=== PATIENT | male | born 1965 | race Caucasian/White ===

== ENCOUNTER 2017-09-17 10:04 | Inpatient (IN) | payer OTHER ==
[~2017-09-17] VITALS: Ht 182.9 cm; Wt 91.3 kg
[~2017-09-17 10:04] MED LIST: ACET325 PO; ACET500 PO; ALBU90I INH; ALBU90OI INH; ALBU90OI6 INH; ALBU90OI61 INH; ANXIETY; ANXIETY MEDS; ASCO250CH PO; Antivert12.5 MG PO; Antivert25 MG PO; BECL80OI INH; BP MEDS; CEPH500 PO; CHLO25 PO; CHLO5; CLON.1; CLON.1 PO; CRUTCH3 XX; Constulose10 GM/15 M PO; Coumadin1 MG PO; DEPRESSION; DEPRESSION MED; DICL250 PO; DOXY100 PO; Enulose 2020 G/30 ML PO; Enulose10 GM/15 M; FAMO40 PO; FERR325 PO; FLUC150A PO; FLUO10; FLUO10 PO; FOLI1 PO; HYDACE5 PO; HYDPAM25 PO; IBUP600 PO; IBUP800 PO; Keflex500 MG PO; LACT10SY PO; LISI20 PO; LISI5 PO; Lisinopril2.5 MG; MECL25 PO; META800 PO; METO50ER PO; MULTI VITAMIN1 EACH PO; MULVITMIND PO; Motrin100 MG/5 M PO; NADO20; NADO20 PO; NAPR500 PO; NICO21TP; NICO21TP TD; NYST100P TOP; Naprosyn500 MG PO; Norco 5-325 Ta1 EACH PO; OMEP20ER PO; OMEP40CA12 PO; OXYACE5T PO; OXYC5 PO; Omeprazole20 M1 PO; PANT40 PO; PROM25 PO; Prozac20 MG PO; RANI150 PO; RXERYTOPTH OP; RXSULTRIDS PO; SULTRIDS PO; THIA100 PO; TRAM50; TRAM50 PO; Ultram50 MG PO; VITAMIN B-1100 MG PO; Zofran Odt4 MG SL; [UNRECOGNIZED DRUG - REMARK]
[2017-09-17] MEDS ORDERED: CLON.1 PO (10:15)
[2017-09-17] MEDS ORDERED: Lactulose10 GM/151 PO (10:15)
[2017-09-17] MEDS ORDERED: MOTION RELIEF25 MG PO (10:16)
[2017-09-17] MEDS ORDERED: Omeprazole20 M1 PO (10:16)
[2017-09-17] MEDS ORDERED: Prozac20 MG PO (10:16)
[2017-09-17] MEDS ORDERED: NADO20 PO (10:17)
[2017-09-17] MEDS ORDERED: Aspir-Low81 MG PO (10:17)
[2017-09-17 10:25] LABS: BASOPHILS ABSOLUTE AUTO 0.12 K/mm3 (0.00-0.23); BASOPHILS PERCENT AUTO 1 % (0-2); EOSINOPHILS ABSOLUTE AUTO 0.26 K/mm3 (0.00-0.68); EOSINOPHILS PERCENT AUTO 3 % (0-6); Hemoglobin 15.8 g/dL (13.5-17.5); IMMATURE GRAN ABSOLUTE AUTO 0.16 K/mm3 (0.00-0.10); IMMATURE GRAN PERCENT AUTO 2 % (0-1); LYMPHOCYTES ABSOLUTE AUTO 2.86 K/mm3 (0.84-5.20); LYMPHOCYTES PERCENT AUTO 30 % (21-46); MONOCYTES ABSOLUTE AUTO 1.81 K/mm3 (0.16-1.47); MONOCYTES PERCENT AUTO 19 % (4-13); Mean Corpuscular HGB 32.4 pg (26.0-34.0); Mean Corpuscular HGB Conc 35.1 g/dL (31.5-36.5); Mean Corpuscular Volume 92 fL (80-100); NEUTROPHILS ABSOLUTE AUTO 4.45 K/mm3 (1.96-9.15); NEUTROPHILS PERCENT AUTO 46 % (41-73); Platelet Count 110 K/mm3 (150-400); RDW Standard Deviation 52.9 fL (35.1-46.3); Red Blood Cell Count 4.88 M/mm3 (4.30-5.90); White Blood Cell Count 9.66 K/mm3 (4.00-11.30)
[2017-09-17 10:40] LABS: International Normalized Ratio 1.23; Prothrombin Time Results 12.9 Sec (9.7-11.5)
[2017-09-17 10:47] LABS: Alanine Aminotransfer (ALT/SGP 28 U/L (12-78); Albumin, Blood 2.9 g/dL (3.4-5.0); Albumin/Globulin Ratio 0.8 (0.8-1.8); Alk Phos 129 U/L (50-136); Anion Gap 9 mmol/L (6-16); Aspartate Aminotrans (AST/SGOT 33 U/L (12-37); Bilirubin, Total 2.3 mg/dL (0.1-1.0); Blood Urea Nitrogen 14 mg/dL (8-24); Bun/Creatinine Ratio 16.6 (12.0-20.0); CO2, Blood 22 mmol/L (21-32); Calcium, Blood 8.2 mg/dL (8.5-10.1); Chloride, Blood 112 mmol/L (98-108); Creatinine, Blood 0.84 mg/dL (0.60-1.20); Globulin, Blood 3.8 g/dL (2.2-4.0); Glomerular Filtration Rate >60 (60-); Glucose, Blood 84 mg/dL (70-99); Potassium, Blood 3.1 mmol/L (3.5-5.5); Sodium, Blood 143 mmol/L (136-145); Total Protein, Blood 6.7 g/dL (6.4-8.2); Troponin I <0.015 ng/mL (0.000-0.040)
[2017-09-18 05:22] LABS: BASOPHILS ABSOLUTE AUTO 0.11 K/mm3 (0.00-0.23); BASOPHILS PERCENT AUTO 1 % (0-2); EOSINOPHILS ABSOLUTE AUTO 0.16 K/mm3 (0.00-0.68); EOSINOPHILS PERCENT AUTO 2 % (0-6); Hematocrit 43.2 % (37.0-53.0); Hemoglobin 15.3 g/dL (13.5-17.5); IMMATURE GRAN ABSOLUTE AUTO 0.09 K/mm3 (0.00-0.10); IMMATURE GRAN PERCENT AUTO 1 % (0-1); LYMPHOCYTES PERCENT AUTO 28 % (21-46); MONOCYTES ABSOLUTE AUTO 1.71 K/mm3 (0.16-1.47); MONOCYTES PERCENT AUTO 20 % (4-13); Mean Corpuscular HGB 31.9 pg (26.0-34.0); Mean Corpuscular HGB Conc 35.4 g/dL (31.5-36.5); Mean Corpuscular Volume 90 fL (80-100); Mean Platelet Volume 11.9 fL (9.1-12.4); NEUTROPHILS PERCENT AUTO 48 % (41-73); Platelet Count 111 K/mm3 (150-400); RDW Coefficient Variation 15.7 % (11.7-14.2); RDW Standard Deviation 51.3 fL (35.1-46.3); Red Blood Cell Count 4.79 M/mm3 (4.30-5.90); White Blood Cell Count 8.37 K/mm3 (4.00-11.30)
[2017-09-18 05:31] LABS: International Normalized Ratio 1.32; Prothrombin Time Results 13.9 Sec (9.7-11.5)
[2017-09-18 05:40] LABS: Alanine Aminotransfer (ALT/SGP 26 U/L (12-78); Albumin, Blood 2.5 g/dL (3.4-5.0); Albumin/Globulin Ratio 0.7 (0.8-1.8); Alk Phos 103 U/L (50-136); Anion Gap 10 mmol/L (6-16); Aspartate Aminotrans (AST/SGOT 31 U/L (12-37); Bilirubin, Direct 0.6 mg/dL (0.0-0.3); Bilirubin, Total 2.6 mg/dL (0.1-1.0); Blood Urea Nitrogen 9 mg/dL (8-24); Bun/Creatinine Ratio 12.3 (12.0-20.0); CO2, Blood 19 mmol/L (21-32); Calcium, Blood 7.9 mg/dL (8.5-10.1); Chloride, Blood 115 mmol/L (98-108); Creatinine, Blood 0.73 mg/dL (0.60-1.20); Globulin, Blood 3.7 g/dL (2.2-4.0); Glomerular Filtration Rate >60 (60-); Glucose, Blood 80 mg/dL (70-99); Potassium, Blood 3.9 mmol/L (3.5-5.5); Sodium, Blood 144 mmol/L (136-145); Total Protein, Blood 6.2 g/dL (6.4-8.2)
[2017-09-19 05:04] LABS: BASOPHILS ABSOLUTE AUTO 0.11 K/mm3 (0.00-0.23); BASOPHILS PERCENT AUTO 1 % (0-2); EOSINOPHILS ABSOLUTE AUTO 0.15 K/mm3 (0.00-0.68); EOSINOPHILS PERCENT AUTO 2 % (0-6); Hematocrit 43.4 % (37.0-53.0); Hemoglobin 15.3 g/dL (13.5-17.5); IMMATURE GRAN ABSOLUTE AUTO 0.09 K/mm3 (0.00-0.10); IMMATURE GRAN PERCENT AUTO 1 % (0-1); LYMPHOCYTES ABSOLUTE AUTO 2.65 K/mm3 (0.84-5.20); LYMPHOCYTES PERCENT AUTO 31 % (21-46); MONOCYTES ABSOLUTE AUTO 1.63 K/mm3 (0.16-1.47); MONOCYTES PERCENT AUTO 19 % (4-13); Mean Corpuscular HGB 32.5 pg (26.0-34.0); Mean Corpuscular HGB Conc 35.3 g/dL (31.5-36.5); Mean Corpuscular Volume 92 fL (80-100); Mean Platelet Volume 11.5 fL (9.1-12.4); NEUTROPHILS ABSOLUTE AUTO 4.02 K/mm3 (1.96-9.15); NEUTROPHILS PERCENT AUTO 47 % (41-73); Platelet Count 109 K/mm3 (150-400); RDW Coefficient Variation 15.4 % (11.7-14.2); Red Blood Cell Count 4.71 M/mm3 (4.30-5.90); White Blood Cell Count 8.65 K/mm3 (4.00-11.30)
[2017-09-19 05:20] LABS: Anion Gap 9 mmol/L (6-16); Blood Urea Nitrogen 8 mg/dL (8-24); Bun/Creatinine Ratio 12.2 (12.0-20.0); CO2, Blood 21 mmol/L (21-32); Calcium, Blood 7.7 mg/dL (8.5-10.1); Chloride, Blood 111 mmol/L (98-108); Creatinine, Blood 0.66 mg/dL (0.60-1.20); Glomerular Filtration Rate >60 (60-); Glucose, Blood 85 mg/dL (70-99); Potassium, Blood 3.7 mmol/L (3.5-5.5); Sodium, Blood 141 mmol/L (136-145)
[2017-09-20 05:00] LABS: BASOPHILS ABSOLUTE AUTO 0.16 K/mm3 (0.00-0.23); BASOPHILS PERCENT AUTO 2 % (0-2); EOSINOPHILS ABSOLUTE AUTO 0.18 K/mm3 (0.00-0.68); EOSINOPHILS PERCENT AUTO 2 % (0-6); Hematocrit 41.6 % (37.0-53.0); Hemoglobin 14.6 g/dL (13.5-17.5); IMMATURE GRAN ABSOLUTE AUTO 0.15 K/mm3 (0.00-0.10); IMMATURE GRAN PERCENT AUTO 2 % (0-1); LYMPHOCYTES ABSOLUTE AUTO 2.78 K/mm3 (0.84-5.20); LYMPHOCYTES PERCENT AUTO 27 % (21-46); MONOCYTES ABSOLUTE AUTO 2.24 K/mm3 (0.16-1.47); MONOCYTES PERCENT AUTO 22 % (4-13); Mean Corpuscular HGB 32.7 pg (26.0-34.0); Mean Corpuscular HGB Conc 35.1 g/dL (31.5-36.5); Mean Corpuscular Volume 93 fL (80-100); Mean Platelet Volume 11.8 fL (9.1-12.4); NEUTROPHILS ABSOLUTE AUTO 4.82 K/mm3 (1.96-9.15); NEUTROPHILS PERCENT AUTO 47 % (41-73); Platelet Count 116 K/mm3 (150-400); RDW Coefficient Variation 15.7 % (11.7-14.2); RDW Standard Deviation 53.6 fL (35.1-46.3); Red Blood Cell Count 4.47 M/mm3 (4.30-5.90); White Blood Cell Count 10.33 K/mm3 (4.00-11.30)
[2017-09-20 05:18] LABS: Anion Gap 8 mmol/L (6-16); Blood Urea Nitrogen 12 mg/dL (8-24); Bun/Creatinine Ratio 14.9 (12.0-20.0); CO2, Blood 23 mmol/L (21-32); Calcium, Blood 8.1 mg/dL (8.5-10.1); Chloride, Blood 111 mmol/L (98-108); Creatinine, Blood 0.81 mg/dL (0.60-1.20); Glomerular Filtration Rate >60 (60-); Glucose, Blood 85 mg/dL (70-99); Potassium, Blood 4.2 mmol/L (3.5-5.5); Sodium, Blood 142 mmol/L (136-145)
== END 2017-09-20 14:09 | disposition home health service (06) | DRG 443 ==
LOC: ER 10:04 → MEDS 11:30 → ENPENDDIS 09-20 10:00 → MEDS 09-20 14:09
PROVIDERS: Emergency Medicine; Hospitalist
DX: K72.90 Hepatic failure, unspecified without coma (principal); K70.30 Alcoholic cirrhosis of liver without ascites; K21.9 Gastro-esophageal reflux disease without esophagitis; I10 Essential (primary) hypertension; G89.29 Other chronic pain; M54.9 Dorsalgia, unspecified; F10.11 Alcohol abuse, in remission; I48.2 Chronic atrial fibrillation; F41.9 Anxiety disorder, unspecified; F32.9 Major depressive disorder, single episode, unspecified; R53.1 Weakness; F17.200 Nicotine dependence, unspecified, uncomplicated; Z79.82 Long term (current) use of aspirin; Z88.0 Allergy status to penicillin; Z91.14 Patient's other noncompliance with medication regimen; Z79.899 Other long term (current) drug therapy; Z96.89 Presence of other specified functional implants
CPT/HCPCS: 36415; 71046; 80048; 80053; 80076; 82140; 83735; 83880; 84484; 85025; 85610; 93005; 93010; 96360; 97110; 97116; 97162; 99285; G0480; G8978; G8979; J0360; J7030

== ENCOUNTER 2017-12-25 11:48 | Observation (INO) | payer OTHER ==
[~2017-12-25] VITALS: Ht 182.9 cm; Wt 90.7 kg
[~2017-12-25 11:48] MED LIST changes: +Aspir-Low81 MG PO; +Lactulose10 GM/151 PO; +MOTION RELIEF25 MG PO
[2017-12-25 12:29] LABS: BASOPHILS ABSOLUTE AUTO 0.17 K/mm3 (0.00-0.23); BASOPHILS PERCENT AUTO 2 % (0-2); EOSINOPHILS ABSOLUTE AUTO 0.21 K/mm3 (0.00-0.68); EOSINOPHILS PERCENT AUTO 3 % (0-6); Hematocrit 42.6 % (37.0-53.0); Hemoglobin 15.4 g/dL (13.5-17.5); IMMATURE GRAN ABSOLUTE AUTO 0.06 K/mm3 (0.00-0.10); IMMATURE GRAN PERCENT AUTO 1 % (0-1); LYMPHOCYTES ABSOLUTE AUTO 2.48 K/mm3 (0.84-5.20); LYMPHOCYTES PERCENT AUTO 30 % (21-46); MONOCYTES ABSOLUTE AUTO 1.63 K/mm3 (0.16-1.47); MONOCYTES PERCENT AUTO 20 % (4-13); Mean Corpuscular HGB 32.6 pg (26.0-34.0); Mean Corpuscular HGB Conc 36.2 g/dL (31.5-36.5); Mean Corpuscular Volume 90 fL (80-100); NEUTROPHILS ABSOLUTE AUTO 3.66 K/mm3 (1.96-9.15); NEUTROPHILS PERCENT AUTO 45 % (41-73); Platelet Count 124 K/mm3 (150-400); RDW Coefficient Variation 14.2 % (11.7-14.2); RDW Standard Deviation 47.7 fL (35.1-46.3); Red Blood Cell Count 4.72 M/mm3 (4.30-5.90); White Blood Cell Count 8.21 K/mm3 (4.00-11.30)
[2017-12-25 12:38] LABS: Alanine Aminotransfer (ALT/SGP 28 U/L (12-78); Albumin, Blood 2.9 g/dL (3.4-5.0); Albumin/Globulin Ratio 0.8 (0.8-1.8); Alk Phos 129 U/L (50-136); Anion Gap 9 mmol/L (6-16); Aspartate Aminotrans (AST/SGOT 29 U/L (12-37); Bilirubin, Total 1.7 mg/dL (0.1-1.0); Blood Urea Nitrogen 9 mg/dL (8-24); Bun/Creatinine Ratio 13.7 (12.0-20.0); CO2, Blood 23 mmol/L (21-32); Calcium, Blood 7.7 mg/dL (8.5-10.1); Chloride, Blood 112 mmol/L (98-108); Creatinine, Blood 0.66 mg/dL (0.60-1.20); Globulin, Blood 3.7 g/dL (2.2-4.0); Glomerular Filtration Rate >60 (60-); Glucose, Blood 89 mg/dL (70-99); Potassium, Blood 3.2 mmol/L (3.5-5.5); Sodium, Blood 144 mmol/L (136-145); Total Protein, Blood 6.6 g/dL (6.4-8.2)
[2017-12-25] MEDS ORDERED: ASPI81CH PO (15:57)
[2017-12-25] MEDS ORDERED: MULTI VITAMIN1 EACH PO (15:58)
[2017-12-26 05:35] LABS: Alanine Aminotransfer (ALT/SGP 22 U/L (12-78); Albumin, Blood 2.6 g/dL (3.4-5.0); Albumin/Globulin Ratio 0.7 (0.8-1.8); Alk Phos 100 U/L (50-136); Anion Gap 8 mmol/L (6-16); Aspartate Aminotrans (AST/SGOT 29 U/L (12-37); Bilirubin, Total 1.7 mg/dL (0.1-1.0); Blood Urea Nitrogen 8 mg/dL (8-24); Bun/Creatinine Ratio 9.5 (12.0-20.0); CO2, Blood 25 mmol/L (21-32); Calcium, Blood 7.8 mg/dL (8.5-10.1); Chloride, Blood 110 mmol/L (98-108); Creatinine, Blood 0.84 mg/dL (0.60-1.20); Globulin, Blood 3.5 g/dL (2.2-4.0); Glomerular Filtration Rate >60 (60-); Glucose, Blood 82 mg/dL (70-99); Magnesium, Blood 1.9 mg/dL (1.6-2.4); Potassium, Blood 3.8 mmol/L (3.5-5.5); Sodium, Blood 143 mmol/L (136-145); Total Protein, Blood 6.1 g/dL (6.4-8.2)
[2017-12-28] MEDS ORDERED: DOCU100 PO (14:38)
== END 2017-12-28 16:45 | disposition home or self-care (01) ==
LOC: ER 11:48 → MEDS 11:49 → ER 13:54 → MEDS 13:54 → ENPENDDIS 12-28 11:09 → MEDS 12-28 16:45
PROVIDERS: Emergency Medicine; Hospitalist
DX: K72.90 Hepatic failure, unspecified without coma (principal); K70.30 Alcoholic cirrhosis of liver without ascites; E87.6 Hypokalemia; R26.9 Unspecified abnormalities of gait and mobility; I10 Essential (primary) hypertension; I48.91 Unspecified atrial fibrillation; Z87.891 Personal history of nicotine dependence; Z88.0 Allergy status to penicillin; Z79.899 Other long term (current) drug therapy
CPT/HCPCS: 36415; 80053; 82140; 83735; 85025; 93005; 93010; 94010; 94760; 96372; 97110; 97116; 97162; 99285-25; 99407; G0378; G8978; G8979; J1650

== ENCOUNTER 2018-01-27 16:17 | Inpatient (IN) | payer OTHER ==
[~2018-01-27] VITALS: Ht 182.9 cm; Wt 94.0 kg
[~2018-01-27 16:17] MED LIST changes: +ASPI81CH PO; +DOCU100 PO; +LACTULOSE20 GM/30 M PO
[2018-01-27 17:03] LABS: BASOPHILS ABSOLUTE AUTO 0.11 K/mm3 (0.00-0.23); BASOPHILS PERCENT AUTO 1 % (0-2); EOSINOPHILS ABSOLUTE AUTO 0.09 K/mm3 (0.00-0.68); EOSINOPHILS PERCENT AUTO 1 % (0-6); Hematocrit 45.9 % (37.0-53.0); IMMATURE GRAN ABSOLUTE AUTO 0.06 K/mm3 (0.00-0.10); IMMATURE GRAN PERCENT AUTO 1 % (0-1); LYMPHOCYTES ABSOLUTE AUTO 2.54 K/mm3 (0.84-5.20); LYMPHOCYTES PERCENT AUTO 28 % (21-46); MONOCYTES ABSOLUTE AUTO 1.43 K/mm3 (0.16-1.47); MONOCYTES PERCENT AUTO 16 % (4-13); Mean Corpuscular HGB 32.2 pg (26.0-34.0); Mean Corpuscular HGB Conc 34.9 g/dL (31.5-36.5); Mean Corpuscular Volume 92 fL (80-100); Mean Platelet Volume 12.1 fL (9.1-12.4); NEUTROPHILS ABSOLUTE AUTO 4.75 K/mm3 (1.96-9.15); NEUTROPHILS PERCENT AUTO 53 % (41-73); Platelet Count 106 K/mm3 (150-400); RDW Coefficient Variation 12.8 % (11.7-14.2); RDW Standard Deviation 43.7 fL (35.1-46.3); Red Blood Cell Count 4.97 M/mm3 (4.30-5.90); White Blood Cell Count 8.98 K/mm3 (4.00-11.30)
[2018-01-27 17:10] LABS: Alanine Aminotransfer (ALT/SGP 67 U/L (12-78); Albumin/Globulin Ratio 0.8 (0.8-1.8); Alk Phos 144 U/L (50-136); Anion Gap 12 mmol/L (6-16); Aspartate Aminotrans (AST/SGOT 105 U/L (12-37); Bilirubin, Total 2.4 mg/dL (0.1-1.0); Blood Urea Nitrogen 7 mg/dL (8-24); Bun/Creatinine Ratio 9.2 (12.0-20.0); CO2, Blood 22 mmol/L (21-32); Calcium, Blood 8.2 mg/dL (8.5-10.1); Chloride, Blood 103 mmol/L (98-108); Creatinine, Blood 0.76 mg/dL (0.60-1.20); Globulin, Blood 3.8 g/dL (2.2-4.0); Glomerular Filtration Rate >60 (60-); Glucose, Blood 109 mg/dL (70-99); Potassium, Blood 3.6 mmol/L (3.5-5.5); Sodium, Blood 137 mmol/L (136-145); Total Protein, Blood 6.8 g/dL (6.4-8.2)
[2018-01-27 17:33] LABS: CPK Creatine Kinase 523 U/L (39-308); Creatine Kinase MB 1.9 ng/mL (0.0-3.6); Creatine Kinase MB Index 0.4 (0.0-4.0); Ethanol (Alcohol), Blood, Med <3 mg/dL
[2018-01-27 19:46] LABS: Source, Urine Clean Catch
[2018-01-27 19:51] LABS: Bilirubin, Urine Neg (Neg); Blood, Urine Neg (Neg); Glucose Qualitative, Urine Neg (Neg); Ketones, Urine 1+ (Neg); Leukocyte Esterase, Urine 1+ (Neg); Nitrite, Urine Neg (Neg); Protein, Urine 2+ (Neg); Urobilinogen, Urine 3+ (Normal)
[2018-01-27 20:07] LABS: U Amphetamine Screen Not Detected; U Barbituate Screen Not Detected; U Benzodiazapine Screen DETECTED; U Buprenorphine Screen Not Detected; U Cannabinoids Screen Not Detected; U Cocaine Screen Not Detected; U Methadone Screen Not Detected; U Methamphetamine Screen Not Detected; U Opiates Screen Not Detected; U Phencyclidine Screen Not Detected
[2018-01-27 20:08] LABS: Appearance, Urine Clear (Clear); Color, Urine Yellow (P-Yellow); U Oxycodone Screen Not Detected; U Propoxyphene Screen Not Detected
[2018-01-27 20:09] LABS: Bacteria Rare /hpf; Red Blood Cells, Urine Not Seen /hpf (0-2); Spermatozoa Few /hpf; Squamous Epithelial Cells Few /hpf (Few)
[2018-01-28 04:41] LABS: BASOPHILS ABSOLUTE AUTO 0.07 K/mm3 (0.00-0.23); BASOPHILS PERCENT AUTO 1 % (0-2); EOSINOPHILS ABSOLUTE AUTO 0.42 K/mm3 (0.00-0.68); EOSINOPHILS PERCENT AUTO 5 % (0-6); Hematocrit 40.9 % (37.0-53.0); Hemoglobin 14.2 g/dL (13.5-17.5); IMMATURE GRAN ABSOLUTE AUTO 0.02 K/mm3 (0.00-0.10); IMMATURE GRAN PERCENT AUTO 0 % (0-1); LYMPHOCYTES ABSOLUTE AUTO 3.37 K/mm3 (0.84-5.20); LYMPHOCYTES PERCENT AUTO 39 % (21-46); MONOCYTES ABSOLUTE AUTO 1.03 K/mm3 (0.16-1.47); MONOCYTES PERCENT AUTO 12 % (4-13); Mean Corpuscular HGB 32.4 pg (26.0-34.0); Mean Corpuscular HGB Conc 34.7 g/dL (31.5-36.5); Mean Corpuscular Volume 93 fL (80-100); Mean Platelet Volume 11.5 fL (9.1-12.4); NEUTROPHILS ABSOLUTE AUTO 3.77 K/mm3 (1.96-9.15); NEUTROPHILS PERCENT AUTO 44 % (41-73); Platelet Count 81 K/mm3 (150-400); RDW Coefficient Variation 12.8 % (11.7-14.2); RDW Standard Deviation 44.4 fL (35.1-46.3); Red Blood Cell Count 4.38 M/mm3 (4.30-5.90); White Blood Cell Count 8.68 K/mm3 (4.00-11.30)
[2018-01-28 04:59] LABS: Alanine Aminotransfer (ALT/SGP 51 U/L (12-78); Albumin, Blood 2.5 g/dL (3.4-5.0); Albumin/Globulin Ratio 0.8 (0.8-1.8); Alk Phos 101 U/L (50-136); Anion Gap 7 mmol/L (6-16); Aspartate Aminotrans (AST/SGOT 83 U/L (12-37); Bilirubin, Total 3.4 mg/dL (0.1-1.0); Blood Urea Nitrogen 6 mg/dL (8-24); Bun/Creatinine Ratio 8.5 (12.0-20.0); CO2, Blood 26 mmol/L (21-32); Calcium, Blood 7.5 mg/dL (8.5-10.1); Chloride, Blood 107 mmol/L (98-108); Creatinine, Blood 0.71 mg/dL (0.60-1.20); Globulin, Blood 3.2 g/dL (2.2-4.0); Glomerular Filtration Rate >60 (60-); Glucose, Blood 87 mg/dL (70-99); Potassium, Blood 3.5 mmol/L (3.5-5.5); Sodium, Blood 140 mmol/L (136-145); Total Protein, Blood 5.7 g/dL (6.4-8.2)
[2018-01-29 04:34] LABS: BASOPHILS ABSOLUTE AUTO 0.07 K/mm3 (0.00-0.23); BASOPHILS PERCENT AUTO 1 % (0-2); EOSINOPHILS ABSOLUTE AUTO 0.62 K/mm3 (0.00-0.68); EOSINOPHILS PERCENT AUTO 7 % (0-6); Hematocrit 39.3 % (37.0-53.0); Hemoglobin 13.9 g/dL (13.5-17.5); IMMATURE GRAN ABSOLUTE AUTO 0.03 K/mm3 (0.00-0.10); IMMATURE GRAN PERCENT AUTO 0 % (0-1); LYMPHOCYTES ABSOLUTE AUTO 2.07 K/mm3 (0.84-5.20); LYMPHOCYTES PERCENT AUTO 24 % (21-46); MONOCYTES ABSOLUTE AUTO 1.11 K/mm3 (0.16-1.47); MONOCYTES PERCENT AUTO 13 % (4-13); Mean Corpuscular HGB 32.5 pg (26.0-34.0); Mean Corpuscular HGB Conc 35.4 g/dL (31.5-36.5); Mean Corpuscular Volume 92 fL (80-100); Mean Platelet Volume 12.3 fL (9.1-12.4); NEUTROPHILS ABSOLUTE AUTO 4.66 K/mm3 (1.96-9.15); NEUTROPHILS PERCENT AUTO 54 % (41-73); Platelet Count 77 K/mm3 (150-400); RDW Standard Deviation 43.8 fL (35.1-46.3); Red Blood Cell Count 4.28 M/mm3 (4.30-5.90); White Blood Cell Count 8.56 K/mm3 (4.00-11.30)
[2018-01-29 04:59] LABS: Anion Gap 8 mmol/L (6-16); Blood Urea Nitrogen 7 mg/dL (8-24); CO2, Blood 25 mmol/L (21-32); Calcium, Blood 7.2 mg/dL (8.5-10.1); Chloride, Blood 105 mmol/L (98-108); Glomerular Filtration Rate >60 (60-); Glucose, Blood 93 mg/dL (70-99); Magnesium, Blood 1.6 mg/dL (1.6-2.4); Potassium, Blood 3.7 mmol/L (3.5-5.5); Sodium, Blood 138 mmol/L (136-145)
[2018-01-30 04:31] LABS: BASOPHILS ABSOLUTE AUTO 0.09 K/mm3 (0.00-0.23); BASOPHILS PERCENT AUTO 1 % (0-2); EOSINOPHILS ABSOLUTE AUTO 0.59 K/mm3 (0.00-0.68); EOSINOPHILS PERCENT AUTO 6 % (0-6); Hematocrit 41.7 % (37.0-53.0); Hemoglobin 14.4 g/dL (13.5-17.5); IMMATURE GRAN ABSOLUTE AUTO 0.08 K/mm3 (0.00-0.10); IMMATURE GRAN PERCENT AUTO 1 % (0-1); LYMPHOCYTES ABSOLUTE AUTO 2.31 K/mm3 (0.84-5.20); LYMPHOCYTES PERCENT AUTO 24 % (21-46); MONOCYTES ABSOLUTE AUTO 1.02 K/mm3 (0.16-1.47); MONOCYTES PERCENT AUTO 10 % (4-13); Mean Corpuscular HGB 32.6 pg (26.0-34.0); Mean Corpuscular HGB Conc 34.5 g/dL (31.5-36.5); Mean Corpuscular Volume 94 fL (80-100); Mean Platelet Volume 11.9 fL (9.1-12.4); NEUTROPHILS ABSOLUTE AUTO 5.72 K/mm3 (1.96-9.15); NEUTROPHILS PERCENT AUTO 58 % (41-73); Platelet Count 84 K/mm3 (150-400); RDW Standard Deviation 45.4 fL (35.1-46.3); Red Blood Cell Count 4.42 M/mm3 (4.30-5.90); White Blood Cell Count 9.81 K/mm3 (4.00-11.30)
[2018-01-30 05:04] LABS: Albumin, Blood 2.4 g/dL (3.4-5.0); Anion Gap 8 mmol/L (6-16); Blood Urea Nitrogen 7 mg/dL (8-24); Bun/Creatinine Ratio 9.3 (12.0-20.0); CO2, Blood 24 mmol/L (21-32); Calcium, Blood 7.4 mg/dL (8.5-10.1); Chloride, Blood 108 mmol/L (98-108); Creatinine, Blood 0.75 mg/dL (0.60-1.20); Glomerular Filtration Rate >60 (60-); Glucose, Blood 105 mg/dL (70-99); Magnesium, Blood 1.8 mg/dL (1.6-2.4); Phosphorus, Blood 2.5 mg/dL (2.5-4.9); Potassium, Blood 3.8 mmol/L (3.5-5.5); Sodium, Blood 140 mmol/L (136-145)
[2018-01-31 04:54] LABS: BASOPHILS ABSOLUTE AUTO 0.11 K/mm3 (0.00-0.23); BASOPHILS PERCENT AUTO 1 % (0-2); EOSINOPHILS ABSOLUTE AUTO 0.63 K/mm3 (0.00-0.68); EOSINOPHILS PERCENT AUTO 6 % (0-6); Hematocrit 43.9 % (37.0-53.0); Hemoglobin 15.1 g/dL (13.5-17.5); IMMATURE GRAN ABSOLUTE AUTO 0.14 K/mm3 (0.00-0.10); IMMATURE GRAN PERCENT AUTO 1 % (0-1); LYMPHOCYTES ABSOLUTE AUTO 2.67 K/mm3 (0.84-5.20); LYMPHOCYTES PERCENT AUTO 25 % (21-46); MONOCYTES ABSOLUTE AUTO 1.24 K/mm3 (0.16-1.47); MONOCYTES PERCENT AUTO 12 % (4-13); Mean Corpuscular HGB 32.8 pg (26.0-34.0); Mean Corpuscular HGB Conc 34.4 g/dL (31.5-36.5); Mean Corpuscular Volume 95 fL (80-100); Mean Platelet Volume 12.3 fL (9.1-12.4); NEUTROPHILS ABSOLUTE AUTO 5.78 K/mm3 (1.96-9.15); NEUTROPHILS PERCENT AUTO 55 % (41-73); Platelet Count 113 K/mm3 (150-400); RDW Coefficient Variation 13.3 % (11.7-14.2); RDW Standard Deviation 46.8 fL (35.1-46.3); Red Blood Cell Count 4.61 M/mm3 (4.30-5.90); White Blood Cell Count 10.57 K/mm3 (4.00-11.30)
[2018-01-31 05:22] LABS: Albumin, Blood 2.4 g/dL (3.4-5.0); Anion Gap 6 mmol/L (6-16); Blood Urea Nitrogen 8 mg/dL (8-24); Bun/Creatinine Ratio 10.5 (12.0-20.0); CO2, Blood 25 mmol/L (21-32); Calcium, Blood 8.1 mg/dL (8.5-10.1); Chloride, Blood 110 mmol/L (98-108); Creatinine, Blood 0.76 mg/dL (0.60-1.20); Glomerular Filtration Rate >60 (60-); Glucose, Blood 82 mg/dL (70-99); Sodium, Blood 141 mmol/L (136-145)
[2018-02-01 04:54] LABS: BASOPHILS ABSOLUTE AUTO 0.12 K/mm3 (0.00-0.23); BASOPHILS PERCENT AUTO 1 % (0-2); EOSINOPHILS PERCENT AUTO 5 % (0-6); Hematocrit 43.2 % (37.0-53.0); IMMATURE GRAN ABSOLUTE AUTO 0.25 K/mm3 (0.00-0.10); IMMATURE GRAN PERCENT AUTO 2 % (0-1); LYMPHOCYTES ABSOLUTE AUTO 2.98 K/mm3 (0.84-5.20); LYMPHOCYTES PERCENT AUTO 27 % (21-46); MONOCYTES ABSOLUTE AUTO 1.51 K/mm3 (0.16-1.47); MONOCYTES PERCENT AUTO 14 % (4-13); Mean Corpuscular HGB 32.8 pg (26.0-34.0); Mean Corpuscular HGB Conc 34.7 g/dL (31.5-36.5); Mean Corpuscular Volume 94 fL (80-100); Mean Platelet Volume 11.8 fL (9.1-12.4); NEUTROPHILS ABSOLUTE AUTO 5.61 K/mm3 (1.96-9.15); NEUTROPHILS PERCENT AUTO 51 % (41-73); Platelet Count 110 K/mm3 (150-400); RDW Coefficient Variation 13.3 % (11.7-14.2); RDW Standard Deviation 45.7 fL (35.1-46.3); Red Blood Cell Count 4.58 M/mm3 (4.30-5.90); White Blood Cell Count 11.07 K/mm3 (4.00-11.30)
[2018-02-01 05:11] LABS: Albumin, Blood 2.4 g/dL (3.4-5.0); Anion Gap 5 mmol/L (6-16); Blood Urea Nitrogen 10 mg/dL (8-24); Bun/Creatinine Ratio 12.5 (12.0-20.0); CO2, Blood 26 mmol/L (21-32); Calcium, Blood 7.7 mg/dL (8.5-10.1); Chloride, Blood 111 mmol/L (98-108); Glomerular Filtration Rate >60 (60-); Glucose, Blood 91 mg/dL (70-99); Phosphorus, Blood 2.8 mg/dL (2.5-4.9); Potassium, Blood 4.2 mmol/L (3.5-5.5); Sodium, Blood 142 mmol/L (136-145)
[2018-02-01] MEDS ORDERED: FOLI1 PO (12:38)
[2018-02-01] MEDS ORDERED: THIA100 PO (12:39)
== END 2018-02-01 15:31 | disposition home health service (06) | DRG 433 ==
LOC: ER 16:17 → MEDS 19:46
PROVIDERS: Emergency Medicine; Family Medicine; Hospitalist; Internal Medicine
DX: K70.40 Alcoholic hepatic failure without coma (principal); F10.239 Alcohol dependence with withdrawal, unspecified; I48.91 Unspecified atrial fibrillation; I10 Essential (primary) hypertension; K70.30 Alcoholic cirrhosis of liver without ascites; F17.210 Nicotine dependence, cigarettes, uncomplicated; D69.59 Other secondary thrombocytopenia; Z66 Do not resuscitate; E83.42 Hypomagnesemia
CPT/HCPCS: 36415; 80048; 80053; 80069; 81001; 82140; 82550; 82553; 82947; 83690; 83735; 85025; 87086; 87493; 90686; 93005; 93010; 96361; 96365; 96375; 97116; 97161; 97165; 99285-25; C9113; G0008; G0480; G8978; G8979; G8987; G8988; J1650; J2060; J2405; J3411; J3475; J7030; J7042

== ENCOUNTER 2018-05-20 16:34 | Inpatient (IN) | payer OTHER ==
[~2018-05-20] VITALS: Ht 182.9 cm; Wt 98.6 kg
[2018-05-20 17:29] LABS: BASOPHILS ABSOLUTE AUTO 0.09 K/mm3 (0.00-0.23); BASOPHILS PERCENT AUTO 1 % (0-2); EOSINOPHILS ABSOLUTE AUTO 0.17 K/mm3 (0.00-0.68); EOSINOPHILS PERCENT AUTO 2 % (0-6); Hematocrit 47.8 % (37.0-53.0); Hemoglobin 16.6 g/dL (13.5-17.5); IMMATURE GRAN ABSOLUTE AUTO 0.06 K/mm3 (0.00-0.10); IMMATURE GRAN PERCENT AUTO 1 % (0-1); LYMPHOCYTES ABSOLUTE AUTO 2.59 K/mm3 (0.84-5.20); LYMPHOCYTES PERCENT AUTO 27 % (21-46); MONOCYTES ABSOLUTE AUTO 1.25 K/mm3 (0.16-1.47); MONOCYTES PERCENT AUTO 13 % (4-13); Mean Corpuscular HGB 32.2 pg (26.0-34.0); Mean Corpuscular HGB Conc 34.7 g/dL (31.5-36.5); Mean Corpuscular Volume 93 fL (80-100); Mean Platelet Volume 11.2 fL (9.1-12.4); NEUTROPHILS ABSOLUTE AUTO 5.34 K/mm3 (1.96-9.15); NEUTROPHILS PERCENT AUTO 56 % (41-73); Platelet Count 145 K/mm3 (150-400); RDW Standard Deviation 52.2 fL (35.1-46.3); Red Blood Cell Count 5.15 M/mm3 (4.30-5.90)
[2018-05-20 17:40] LABS: Alanine Aminotransfer (ALT/SGP 40 U/L (12-78); Albumin, Blood 2.6 g/dL (3.4-5.0); Albumin/Globulin Ratio 0.6 (0.8-1.8); Alk Phos 133 U/L (50-136); Anion Gap 10 mmol/L (6-16); Aspartate Aminotrans (AST/SGOT 58 U/L (12-37); Blood Urea Nitrogen 5 mg/dL (8-24); CO2, Blood 23 mmol/L (21-32); CPK Creatine Kinase 317 U/L (39-308); Calcium, Blood 7.2 mg/dL (8.5-10.1); Chloride, Blood 108 mmol/L (98-108); Creatinine, Blood 0.56 mg/dL (0.60-1.20); Globulin, Blood 4.5 g/dL (2.2-4.0); Glomerular Filtration Rate >60 (60-); Glucose, Blood 103 mg/dL (70-99); Potassium, Blood 4.3 mmol/L (3.5-5.5); Sodium, Blood 141 mmol/L (136-145); Total Protein, Blood 7.1 g/dL (6.4-8.2)
[2018-05-20 17:48] LABS: International Normalized Ratio 1.1; Prothrombin Time Results 11.6 Sec (9.7-11.5)
[2018-05-20 17:58] LABS: Creatine Kinase MB 2.2 ng/mL (0.0-3.6); Creatine Kinase MB Index 0.7 (0.0-4.0)
[2018-05-20 19:22] LABS: Magnesium, Blood 1.9 mg/dL (1.6-2.4)
--- NOTE | 2018-05-20 20:30 | NUR ---
PT ARRIVES TO PCU 10 VIA GURNEY FROM ER FOR DX ALCHOHOLIC ENCEPHALOPATHY WITH ALTERED MENTAL STATUS. PT IS SPEAKING IN FULL SENTANCES ON ARRIVAL. HE IS ABLE TO STATE THAT HE IS IN THE HOSPITAL BECAUSE HE "FELL OFF THE WAGON" HE IS ABLE TO STATE THAT THIS IS MAY 20 HOWEVER WHEN ASKED FOR THE YEAR HE STATES "HOW OLD AM I? I'M 52, LET'S SEE, 64 AND 52, IT MUST BE 2000" DENIES VISUAL OR AUDITORY HALLUCINATIONS HOWEVER DOES STATE THAT LIGHTS AND SOUNDS ARE GIVING HIM A SLIGHT HEADACHE. DENIES N/V, DENIES CURRENT CP/PRESSURE, DENIES SOB/DYSPNEA, DENIES NUMBNESS/TINGLING. BACKS OF THIGHS BILAT ARE NOTED WITH EXCORIATIONS R/T INCONTINENCE, PT STRONGLY ENCOURAGED TO USE URINAL HE STATES THAT HE IS ABLE TO FEEL WHEN HE NEEDS TO VOID "IT'S JUST EASIER" TO VOID WITHOUT GETTING UP.
[2018-05-20 22:13] LABS: U Amphetamine Screen Not Detected; U Barbituate Screen Not Detected; U Benzodiazapine Screen Not Detected; U Buprenorphine Screen Not Detected; U Cannabinoids Screen Not Detected; U Cocaine Screen Not Detected; U Methadone Screen Not Detected; U Methamphetamine Screen Not Detected; U Opiates Screen Not Detected; U Oxycodone Screen Not Detected; U Phencyclidine Screen Not Detected; U Propoxyphene Screen Not Detected
[2018-05-21 04:04] LABS: Hematocrit 45.2 % (37.0-53.0); Hemoglobin 15.5 g/dL (13.5-17.5); Mean Corpuscular HGB 31.8 pg (26.0-34.0); Mean Corpuscular HGB Conc 34.3 g/dL (31.5-36.5); Mean Corpuscular Volume 93 fL (80-100); Mean Platelet Volume 11.3 fL (9.1-12.4); Platelet Count 119 K/mm3 (150-400); RDW Coefficient Variation 15.3 % (11.7-14.2); RDW Standard Deviation 52.3 fL (35.1-46.3); Red Blood Cell Count 4.87 M/mm3 (4.30-5.90); White Blood Cell Count 8.15 K/mm3 (4.00-11.30)
[2018-05-21 04:23] LABS: Alanine Aminotransfer (ALT/SGP 38 U/L (12-78); Albumin, Blood 2.4 g/dL (3.4-5.0); Albumin/Globulin Ratio 0.6 (0.8-1.8); Alk Phos 129 U/L (50-136); Anion Gap 10 mmol/L (6-16); Aspartate Aminotrans (AST/SGOT 63 U/L (12-37); Blood Urea Nitrogen 8 mg/dL (8-24); CO2, Blood 24 mmol/L (21-32); CPK Creatine Kinase 227 U/L (39-308); Calcium, Blood 7.5 mg/dL (8.5-10.1); Chloride, Blood 111 mmol/L (98-108); Creatinine, Blood 0.73 mg/dL (0.60-1.20); Globulin, Blood 4.3 g/dL (2.2-4.0); Glomerular Filtration Rate >60 (60-); Glucose, Blood 103 mg/dL (70-99); Potassium, Blood 4.1 mmol/L (3.5-5.5); Sodium, Blood 145 mmol/L (136-145); Total Protein, Blood 6.7 g/dL (6.4-8.2)
--- NOTE | 2018-05-21 05:58 | NUR ---
PT RESTS QUIETLY AFTER ADMIT, CIWA SCORES RANGE FROM 8-14, LIBRIUM 25 MG PO ADMIN X 2 AND ATIVAN 2 MG ADMIN X 1, PT NOTED TO APPEAR TO SLEEP FOLLOWING ATIVAN ADMINISTRATION BUT DOES ROUSE EASILY TO VERBAL STIMULI. RATED PAIN IMPROVED FOLLOWING WOUND CARE TO BILAT POSTERIOR THIGHS, MEPILEX DRESSINGS PLACED AND SECURED WITH KERLIX GAUZE, PT TOLERATED WELL. CONTINENT OF URINE THIS SHIFT. AFIB WITH RATES UP TO 150-170S WITH 7 BEAT RUN OF VTA, DR STYLES NOTIFIED AND METOPROLOL 5 MG IV ORDERED, ADMIN X 1 WITH RATE IMPROVED TO 110S.
--- NOTE | 2018-05-21 13:29 | NUR ---
Patient was resting in bed when I entered the room but quickly awoke to the sound of his name. After I introduced myself, patient welcomed me into the room but explained that he was tired and was recovering from an alcohol induced overdose. Patient explained that he knew better than to start drinking again and that he had quite a few years clean and sober and that he didn't want to go back to "this." I listened empathically, explored confucianist beliefs, reinforced helpful attitdes and practices and provided prayer. Patient started to show signs of tiredness so I cut my visit short. Patient expressed appreciation for the visit and asked me for a return visit.
--- NOTE | 2018-05-21 18:32 | NUR ---
SHIFT SUMMARY PT RESTING IN BED THROUGHOUT THE DAY. ALERT AND ORIENTED X3 WITH SOME SLURRED SPEECH AT TIMES. PT MORE AWAKE THIS AFTERNOON. C/O 8-10/10 BACK / ABDOMINAL PAIN, MEDICATED WITH SCHEDULED PAIN MEDS. CIWA RATING 4-8, SEE EMAR FOR SCHEDULED AND PRN MEDS. AFIB ON TELE RATE 90-120s. LUNG SOUNDS COARSE, BUT CLEARS WITH COUGH. BILATERAL POSTERIOR OF LEGS ARE RED AND AGITATED, DRSGS INTACT. WILL CONTINUE TO MONITOR.
--- NOTE | 2018-05-22 01:24 | NUR ---
CARE ASSUMED REPORT RECEIVED, CARE ASSUMED AT 1900. PT ALERT AND COOPERATIVE THROUGHOUT NIGHT. BP ELEVATED, HR IN 100'S AFIB. [employer] ADVISOR NOTIFIED AND NEW ORDER FOR CLONIDINE. PT HAS FEVER, BLANKETS MINIMIZED AND FAN PROVIDED. SEE SHIFT ASSESSMENT, VITALS FLOWSHEET AND CIWA ASSESSMENTS.
[2018-05-22 04:30] LABS: BASOPHILS ABSOLUTE AUTO 0.06 K/mm3 (0.00-0.23); BASOPHILS PERCENT AUTO 1 % (0-2); EOSINOPHILS ABSOLUTE AUTO 0.37 K/mm3 (0.00-0.68); EOSINOPHILS PERCENT AUTO 5 % (0-6); Hematocrit 41.1 % (37.0-53.0); Hemoglobin 13.8 g/dL (13.5-17.5); IMMATURE GRAN ABSOLUTE AUTO 0.05 K/mm3 (0.00-0.10); IMMATURE GRAN PERCENT AUTO 1 % (0-1); LYMPHOCYTES ABSOLUTE AUTO 1.79 K/mm3 (0.84-5.20); LYMPHOCYTES PERCENT AUTO 26 % (21-46); MONOCYTES ABSOLUTE AUTO 0.93 K/mm3 (0.16-1.47); MONOCYTES PERCENT AUTO 13 % (4-13); Mean Corpuscular HGB Conc 33.6 g/dL (31.5-36.5); Mean Corpuscular Volume 95 fL (80-100); Mean Platelet Volume 11.7 fL (9.1-12.4); NEUTROPHILS PERCENT AUTO 54 % (41-73); Platelet Count 79 K/mm3 (150-400); RDW Coefficient Variation 14.6 % (11.7-14.2); RDW Standard Deviation 51.5 fL (35.1-46.3); Red Blood Cell Count 4.31 M/mm3 (4.30-5.90)
[2018-05-22 04:46] LABS: Alanine Aminotransfer (ALT/SGP 29 U/L (12-78); Albumin, Blood 2.5 g/dL (3.4-5.0); Albumin/Globulin Ratio 0.6 (0.8-1.8); Alk Phos 127 U/L (50-136); Anion Gap 8 mmol/L (6-16); Aspartate Aminotrans (AST/SGOT 54 U/L (12-37); Bilirubin, Total 1.6 mg/dL (0.1-1.0); Blood Urea Nitrogen 12 mg/dL (8-24); Bun/Creatinine Ratio 17.9 (12.0-20.0); CO2, Blood 24 mmol/L (21-32); Calcium, Blood 7.6 mg/dL (8.5-10.1); Chloride, Blood 106 mmol/L (98-108); Creatinine, Blood 0.67 mg/dL (0.60-1.20); Globulin, Blood 3.9 g/dL (2.2-4.0); Glomerular Filtration Rate >60 (60-); Glucose, Blood 85 mg/dL (70-99); Magnesium, Blood 1.8 mg/dL (1.6-2.4); Potassium, Blood 3.8 mmol/L (3.5-5.5); Sodium, Blood 138 mmol/L (136-145); Total Protein, Blood 6.4 g/dL (6.4-8.2)
--- NOTE | 2018-05-22 06:06 | NUR ---
SUMMARY THROUGHOUT MORNING, CIWA INCREASING. MEDICATED PER EMAR. THROUGHOUT CHANGING CIWA PT REMAINS COOPERATIVE. VITALS STABLE OTHER THAN PT DOES HAVE FEVER. FAN CONTINUES TO BE IN PLACE. WILL CONTINUE TO MONITOR AND DISCUSS WITH DAY SHIFT FOR MD ROUNDS.
--- NOTE | 2018-05-22 07:10 | NUR ---
PT APPEARS TO BE RESTING COMFORTABLY. RESP EVEN AND UNLABORED. WILL MONITOR.
--- NOTE | 2018-05-22 09:00 | NUR ---
INITIAL ASSESSMENT: WOKE PT FOR ASSESSMENT AND BREAKFAST. PT SEEMS ORIENTED TO PERSON, PLACE, TIME, SURROUNDINGS. LS DIMINISHED. HR REG. STATES THAT HE IS FEELING TIRED AND WEAK AND THAT HE WANTS TO GO HOME. PT SEEMS TO BE VERY WEAK. CIWA AROUND 4-5 AT THIS TIME. WILL TREAT FOR ETOH WITHDRAWL PER ORDERS. VSS. BED ALARM ON. WILL MONITOR.
--- NOTE | 2018-05-22 14:49 | NUR ---
Attempted visit with patient today. He is snoring loudly. Cuco, nurse, reports that pt wakes up easily and has been oriented. Pt does not wake up enough to discuss. With shoulder shake and calling pt's name loudly, he wakes up momentarily, but falls back asleep after 1-2 words to me. He resumes his snoring. Message left for Cuco. Will return to room and hopefully have discussion with patient. Pt may be experiencing alcohol withdrawal here shortly. Will remain available.
--- NOTE | 2018-05-22 18:14 | NUR ---
SHIFT SUMMARY: Pt resting in bed. Still very weak, unable to even feed himself. He has been drowsy and lethargic all shift but does wake to verbal stimulus. Pt is oriented to self, place, surroundings and situation. CIWA has been stable this shift with the highest being about 6. LS diminished. HR reg. Bt positive. Pt was changed to med no tele so tele was removed this afternoon. Condam cath draining clear yellow urine. BT positive. Pt passing flatus and had one incotinent small stool. No other changes this shift. Will report to night rn.
--- NOTE | 2018-05-23 01:13 | NUR ---
UPDATE PT ALERT TO SELF AND PLACE. PT NEEDS FREQUENT REPORIENTATION. SEE CIWA. PT HAD ONE INCONTINENT BM THIS SHIFT. ATTENDS IN PLACE AND DRY AT THIS TIME. CONDOM CATH IN PLACE DRAINING DARK YELLOW URINE. VS STABLE. O2 SATS >92% ON RA. PT DENIES ANY PAIN AT THIS TIME. REPORT CALLED TO MEDICAL FLOOR RN. PT AWAITING TRANSFER.
--- NOTE | 2018-05-23 07:35 | NUR ---
a+o, somnolent, calm, no significant s/sx of withdrawl, asphasic speech, cream to back side, saline locked, room air, condom cath
--- NOTE | 2018-05-23 18:00 | NUR ---
PT. SLEEPING SOUNDLY AT THIS TIME. PT. SPEECH IS SLURRED AND CONFUSED, ALSO SEEING PEOPLE, WANTING TO GO NEXT DOOR. PT. HAS A CONDOOM CATH IN PLACE WHICH IS WORKING WELL. RASHES AND WOUNDS ON BILATERAL HIPS, CALAZIME PLACED. NO OPEN WOUNDS AT THIS TIME. PT. TO HAVE A SIT TO STAND WHEN GETTING UP. VEVIRAL WEAK.
[2018-05-24 05:26] LABS: BASOPHILS ABSOLUTE AUTO 0.07 K/mm3 (0.00-0.23); BASOPHILS PERCENT AUTO 1 % (0-2); EOSINOPHILS ABSOLUTE AUTO 0.37 K/mm3 (0.00-0.68); EOSINOPHILS PERCENT AUTO 4 % (0-6); Hematocrit 44.8 % (37.0-53.0); Hemoglobin 15.3 g/dL (13.5-17.5); IMMATURE GRAN ABSOLUTE AUTO 0.09 K/mm3 (0.00-0.10); IMMATURE GRAN PERCENT AUTO 1 % (0-1); LYMPHOCYTES ABSOLUTE AUTO 1.86 K/mm3 (0.84-5.20); LYMPHOCYTES PERCENT AUTO 18 % (21-46); MONOCYTES ABSOLUTE AUTO 1.11 K/mm3 (0.16-1.47); MONOCYTES PERCENT AUTO 11 % (4-13); Mean Corpuscular HGB 32.3 pg (26.0-34.0); Mean Corpuscular HGB Conc 34.2 g/dL (31.5-36.5); Mean Corpuscular Volume 95 fL (80-100); Mean Platelet Volume 11.5 fL (9.1-12.4); NEUTROPHILS ABSOLUTE AUTO 7.01 K/mm3 (1.96-9.15); NEUTROPHILS PERCENT AUTO 67 % (41-73); Platelet Count 95 K/mm3 (150-400); RDW Coefficient Variation 14.8 % (11.7-14.2); RDW Standard Deviation 51.7 fL (35.1-46.3); Red Blood Cell Count 4.73 M/mm3 (4.30-5.90); White Blood Cell Count 10.51 K/mm3 (4.00-11.30)
[2018-05-24 05:50] LABS: Magnesium, Blood 1.5 mg/dL (1.6-2.4)
[2018-05-24 05:52] LABS: Alanine Aminotransfer (ALT/SGP 28 U/L (12-78); Albumin, Blood 2.6 g/dL (3.4-5.0); Albumin/Globulin Ratio 0.6 (0.8-1.8); Alk Phos 130 U/L (50-136); Anion Gap 7 mmol/L (6-16); Aspartate Aminotrans (AST/SGOT 48 U/L (12-37); Blood Urea Nitrogen 10 mg/dL (8-24); Bun/Creatinine Ratio 13.5 (12.0-20.0); CO2, Blood 25 mmol/L (21-32); Calcium, Blood 7.8 mg/dL (8.5-10.1); Chloride, Blood 112 mmol/L (98-108); Creatinine, Blood 0.74 mg/dL (0.60-1.20); Globulin, Blood 4.3 g/dL (2.2-4.0); Glomerular Filtration Rate >60 (60-); Glucose, Blood 79 mg/dL (70-99); Potassium, Blood 3.8 mmol/L (3.5-5.5); Sodium, Blood 144 mmol/L (136-145); Total Protein, Blood 6.9 g/dL (6.4-8.2)
--- NOTE | 2018-05-24 06:41 | NUR ---
Rn summary: Patient was very sleepy lethargic at the beginning of shift. Patient has rested well with no c/o pain. Pt has had condom cath and hs had adequate output. Pt has had no stools this shift. This am at 0420 pt awake and very confused. He wanted us to " call 911 to take him to the hospital". He talks about walking from [employer] and falling down multiple time tonight. He has to be reminded several times until he remembered where he is. Pt states he does not feel good. He is checked and his CIWA is a 12. Pt medicated with ativan 2mg IV. Pt states no change after an hour. Pt CIWA was 13. Pt ate a snack and has been resting better. Will continue to monitor. Bed alarm is on, pt has not tried to get out of bed. Report to charge nurse.
--- NOTE | 2018-05-24 17:21 | NUR ---
PT ALERT, ORIENTED TO SELF AND PLACE, THE PT TO DAY WAS UP INTO THE CHAIR FOR LUNCH, WORKED WITH PHYSICAL AND OCCUPATIONAL THERAPIST, THE SIT TO STAND LIFT WAS USED TO TRANSFER THE PT TO THE CHAIR, HE IS UNABLE TO STAND UNSUPPORTED AT THIS TIME, THE PT REPORTED HAVING AUDITORY HALUCINATIONS TODAY, HOWEVER NO VISUAL, LAST CWAW SCORE WAS 12 PER THIS RN, THE PT WAS MEDICATED SCHEDULED FOR AC PAIN AND FOR WITHDRAWL, CALL LIGHT IN REACH, BED ALARM ON WILL CONTINUE TO MONITOR AND ASSESS FOR CHANGES
[2018-05-25 04:29] LABS: BASOPHILS ABSOLUTE AUTO 0.08 K/mm3 (0.00-0.23); BASOPHILS PERCENT AUTO 1 % (0-2); EOSINOPHILS ABSOLUTE AUTO 0.51 K/mm3 (0.00-0.68); EOSINOPHILS PERCENT AUTO 5 % (0-6); Hematocrit 42.8 % (37.0-53.0); Hemoglobin 14.5 g/dL (13.5-17.5); IMMATURE GRAN ABSOLUTE AUTO 0.18 K/mm3 (0.00-0.10); IMMATURE GRAN PERCENT AUTO 2 % (0-1); LYMPHOCYTES ABSOLUTE AUTO 3.21 K/mm3 (0.84-5.20); LYMPHOCYTES PERCENT AUTO 30 % (21-46); MONOCYTES ABSOLUTE AUTO 1.68 K/mm3 (0.16-1.47); MONOCYTES PERCENT AUTO 16 % (4-13); Mean Corpuscular HGB 31.6 pg (26.0-34.0); Mean Corpuscular HGB Conc 33.9 g/dL (31.5-36.5); Mean Corpuscular Volume 93 fL (80-100); Mean Platelet Volume 12.3 fL (9.1-12.4); NEUTROPHILS ABSOLUTE AUTO 4.93 K/mm3 (1.96-9.15); NEUTROPHILS PERCENT AUTO 47 % (41-73); Platelet Count 105 K/mm3 (150-400); RDW Coefficient Variation 15.3 % (11.7-14.2); RDW Standard Deviation 51.3 fL (35.1-46.3); Red Blood Cell Count 4.59 M/mm3 (4.30-5.90); White Blood Cell Count 10.59 K/mm3 (4.00-11.30)
[2018-05-25 04:47] LABS: Magnesium, Blood 1.8 mg/dL (1.6-2.4)
[2018-05-25 04:48] LABS: Alanine Aminotransfer (ALT/SGP 24 U/L (12-78); Albumin, Blood 2.5 g/dL (3.4-5.0); Albumin/Globulin Ratio 0.6 (0.8-1.8); Alk Phos 127 U/L (50-136); Anion Gap 8 mmol/L (6-16); Aspartate Aminotrans (AST/SGOT 33 U/L (12-37); Bilirubin, Total 1.5 mg/dL (0.1-1.0); Blood Urea Nitrogen 10 mg/dL (8-24); Bun/Creatinine Ratio 13.1 (12.0-20.0); CO2, Blood 25 mmol/L (21-32); Calcium, Blood 7.5 mg/dL (8.5-10.1); Chloride, Blood 112 mmol/L (98-108); Creatinine, Blood 0.76 mg/dL (0.60-1.20); Globulin, Blood 4.2 g/dL (2.2-4.0); Glomerular Filtration Rate >60 (60-); Glucose, Blood 81 mg/dL (70-99); Potassium, Blood 3.4 mmol/L (3.5-5.5); Sodium, Blood 145 mmol/L (136-145); Total Protein, Blood 6.7 g/dL (6.4-8.2)
--- NOTE | 2018-05-25 05:07 | NUR ---
SHIFT SUMMARY AT BEGINNING OF SHIFT PT AOX2, CONFUSED OF WHERE HE WAS, AWARE OF MONTH BUT NOT DATE & DID NOT KNOW WHY HE WAS IN THE HOSPITAL. PT STATED, "I'M TRYING TO EAT THE PIZZA THAT GOT DELIVERED TO MY ROOM." INFORMED PT THERE WAS NO PIZZA ON BEDSIDE TABLE. HAD TO REDIRECT PT MULTPILE TIMES TELLING HIM WHERE HE WAS. CIWA SCORE WAS 13 @ BEGINNING OF SHIFT & PT HAS BEEN SLEEPING SOUNDLY & SNORING SINCE. CIWA SCORE HAS BEEN O SINCE LAST NIGHT DUE TO PT NOT BEING ABLE TO WAKE ENOUGH TO ANSWER QUESTIONS OR ASSESS, EVEN W/NAME SAID LOUDLY & CHEST RUBBED ONLY ONE EYE OPENS & THEN PT FALLS BACK TO SLEEP SNORING. VSS. NO S/S OF PAIN, N/V OR SOB THIS AM. CALL LIGHT IN REACH & BED ALARM ON.
--- NOTE | 2018-05-25 13:44 | NUR ---
PATIENT HAS BEEN HYPERSOMNOLENT. DR HAS BEEN NOTIFIED. PATIENT IS TO JUST RELAX AND MEDICATIONS HELD PER CLINICAL JUDGEMENT UNTIL PATIENT IS ABLE TO TAKE THEM SAFELY. PATIENT HAVING TROUBLE STAYING AWAKE IN THE ROOM, RESPONDS TO PAIN.
--- NOTE | 2018-05-25 17:55 | NUR ---
SHIFT SUMMARY PATIENT PLEASANT. NO ACUTE CONCERNS AT THIS TIME. HE IS WAKING UP MORE OFTEN. PATIENT HAS NO CURRENT CONCERNS. HE IS LESS HYPERSOMNOLENT. MEDICATIONS HAVE BEEN CHANGED TO PRN TO KEEP FROM SNOWING THE PATIENT. HE IS HAPPY, WORKING ON HIS MEAL AT THIS TIME. HAS HAD ONE DOSE OF ULTRAM TODAY.
--- NOTE | 2018-05-26 05:46 | NUR ---
VSS, AFEBRILE, A/O, DELAYED RESPONSES AT TIMES, CIWA 0 OVERNOC, 20G L WRIST, INCONT B/B, EXCORIATED BUTTOCKS/BACK AREA, NO COMPLAINTS OVER NOC, PT SLEPT DEEPLY ALL NIGHT
--- NOTE | 2018-05-26 12:43 | NUR ---
DISCHARGE SUMMARY PATIENT WAS LIFTED INTO THE WHEELCHAIR. TRANSPORT FROM [facility] CALLED FOR PATIENT. IV REMOVED. TALKED WITH PATIENT ABOUT GOING TO REHAB TO GET STRONGER. NO ACUTE CONCERNS AT THIS TIME. PATIENT IN WHEELCHAIR AND HEADED TO [facility]. HAVE CALLED FOR REPORT AT THIS TIME. AWAITING ANSWER FROM [facility].
== END 2018-05-26 12:36 | DRG 896 ==
LOC: ER 16:34 → PCU 19:13 → MEDS 05-23 01:35
PROVIDERS: Emergency Medicine; Internal Medicine; Nurse Practitioner Acute Care; ADMIT Hospitalist
DX: F10.239 Alcohol dependence with withdrawal, unspecified (principal); G92 Toxic encephalopathy; K70.30 Alcoholic cirrhosis of liver without ascites; I48.2 Chronic atrial fibrillation; I10 Essential (primary) hypertension; F17.210 Nicotine dependence, cigarettes, uncomplicated; Z88.0 Allergy status to penicillin; Z79.82 Long term (current) use of aspirin; Z79.899 Other long term (current) drug therapy; S30.810A Abrasion of lower back and pelvis, initial encounter; S70.319A Abrasion, unspecified thigh, initial encounter
CPT/HCPCS: 36415; 71045; 80053; 82140; 82550; 82553; 83735; 85025; 85027; 85610; 85730; 93005; 93010; 96360; 97110; 97112; 97162; 97166; 97530; 99285-25; C9113; G0480; J2060; J3475; J7030; J7042

== ENCOUNTER 2018-07-28 17:09 | Emergency (ER) | payer OTHER ==
[~2018-07-28] VITALS: Ht 182.9 cm; Wt 97.5 kg
[2018-07-28] MEDS ORDERED: BLOOD PRESSURE M (17:27)
== END 2018-07-28 18:08 | disposition home or self-care (01) ==
LOC: ER 17:09
DX: S80.02XA Contusion of left knee, initial encounter (principal); I10 Essential (primary) hypertension; I48.91 Unspecified atrial fibrillation; G89.29 Other chronic pain; M54.9 Dorsalgia, unspecified; F17.210 Nicotine dependence, cigarettes, uncomplicated; Z88.0 Allergy status to penicillin; Z79.82 Long term (current) use of aspirin; W19.XXXA Unspecified fall, initial encounter
CPT/HCPCS: 73564; 99283-25

== ENCOUNTER 2018-09-17 20:15 | Inpatient (IN) | payer OTHER ==
[~2018-09-17] VITALS: Ht 182.9 cm; Wt 96.2 kg
[~2018-09-17 20:15] MED LIST changes: +BLOOD PRESSURE M
[2018-09-17 20:49] LABS: BASOPHILS ABSOLUTE AUTO 0.12 K/mm3 (0.00-0.23); BASOPHILS PERCENT AUTO 2 % (0-2); EOSINOPHILS ABSOLUTE AUTO 0.24 K/mm3 (0.00-0.68); EOSINOPHILS PERCENT AUTO 3 % (0-6); Hematocrit 49.8 % (37.0-53.0); Hemoglobin 17.3 g/dL (13.5-17.5); IMMATURE GRAN ABSOLUTE AUTO 0.03 K/mm3 (0.00-0.10); IMMATURE GRAN PERCENT AUTO 0 % (0-1); LYMPHOCYTES ABSOLUTE AUTO 3.25 K/mm3 (0.84-5.20); LYMPHOCYTES PERCENT AUTO 40 % (21-46); MONOCYTES ABSOLUTE AUTO 1.56 K/mm3 (0.16-1.47); MONOCYTES PERCENT AUTO 19 % (4-13); Mean Corpuscular HGB 32.3 pg (26.0-34.0); Mean Corpuscular HGB Conc 34.7 g/dL (31.5-36.5); Mean Corpuscular Volume 93 fL (80-100); Mean Platelet Volume 12.9 fL (9.1-12.4); NEUTROPHILS PERCENT AUTO 37 % (41-73); Platelet Count 153 K/mm3 (150-400); RDW Coefficient Variation 14.9 % (11.7-14.2); RDW Standard Deviation 50.8 fL (35.1-46.3); Red Blood Cell Count 5.35 M/mm3 (4.30-5.90)
[2018-09-17 22:27] LABS: Alanine Aminotransfer (ALT/SGP 32 U/L (12-78); Albumin, Blood 2.8 g/dL (3.4-5.0); Albumin/Globulin Ratio 0.7 (0.8-1.8); Alk Phos 111 U/L (50-136); Anion Gap 9 mmol/L (6-16); Aspartate Aminotrans (AST/SGOT 41 U/L (12-37); Bilirubin, Total 1.3 mg/dL (0.1-1.0); Blood Urea Nitrogen 10 mg/dL (8-24); Bun/Creatinine Ratio 14.7 (12.0-20.0); CO2, Blood 22 mmol/L (21-32); Calcium, Blood 8.3 mg/dL (8.5-10.1); Chloride, Blood 116 mmol/L (98-108); Creatinine, Blood 0.68 mg/dL (0.60-1.20); Ethanol (Alcohol), Blood, Med <3 mg/dL; Globulin, Blood 3.9 g/dL (2.2-4.0); Glomerular Filtration Rate >60 (60-); Glucose, Blood 81 mg/dL (70-99); Potassium, Blood 3.6 mmol/L (3.5-5.5); Sodium, Blood 147 mmol/L (136-145); Total Protein, Blood 6.7 g/dL (6.4-8.2)
[2018-09-17 23:11] LABS: Source, Urine Clean Catch
[2018-09-17 23:15] LABS: Blood, Urine 2+ (Neg); Glucose Qualitative, Urine Neg (Neg); Ketones, Urine Neg (Neg); Leukocyte Esterase, Urine Neg (Neg); Nitrite, Urine Neg (Neg); Protein, Urine Neg (Neg); Specific Gravity, Urine 1.015 (1.003-1.022); Urobilinogen, Urine 3+ (Normal)
[2018-09-17 23:24] LABS: Appearance, Urine Clear (Clear); Bilirubin, Urine 1+ (Neg); Color, Urine Yellow (P-Yellow)
[2018-09-17 23:25] LABS: Bacteria Rare /hpf; Squamous Epithelial Cells Rare /hpf (Few); White Blood Cells, Urine Rare /hpf (0-5)
[2018-09-17 23:39] LABS: U Amphetamine Screen Not Detected; U Barbituate Screen Not Detected; U Benzodiazapine Screen Not Detected; U Buprenorphine Screen Not Detected; U Cannabinoids Screen DETECTED; U Cocaine Screen Not Detected; U Methadone Screen Not Detected; U Methamphetamine Screen Not Detected; U Opiates Screen Not Detected; U Oxycodone Screen Not Detected; U Phencyclidine Screen Not Detected; U Propoxyphene Screen Not Detected
[2018-09-18] MEDS ORDERED: PROP10 PO (05:10)
[2018-09-18] MEDS ORDERED: PANT40 PO (05:13)
[2018-09-18] MEDS ORDERED: Nicoderm Cq1 EAC1 TOP (05:13)
[2018-09-18] MEDS ORDERED: MIRT30 PO (05:13)
[2018-09-18] MEDS ORDERED: LACTULOSE20 GM/30 M PO (05:14)
[2018-09-18] MEDS ORDERED: LO-DOSE ASPIRIN81 MG PO (05:15)
[2018-09-18] MEDS ORDERED: Thiamine HCl100 MG PO (05:15)
--- NOTE | 2018-09-18 05:26 | NUR ---
[facility]: CIWA MONITORING PER PROTOCOL AT THIS TIME BUT NO NEED FOR MEDS. NEW ORDER FOR LACTULOSE 30 GM PO QID.
--- NOTE | 2018-09-18 05:37 | NUR ---
T/F AND SUMMARY: TRANSFERRED VIA GURNEY TO ROOM 345 AT 0300. PT CONFUSED TO TIME/EVENT/DATE AND IS POOR HISTORIAN W/INABILITY TO CONTRIBUT MUCH INFO RE: HEALTH HX SPECIFICS. E-RECORD UTILIZED. PT STATED "TAKES NO MEDS" AT HOME BUT PT WAS RECENTLY D/C'D W/MEDS IN MAY SO THESE WERE USED FOR MEDICATION RECONCILLIATION. HE WAS FOUND IN BED AT HOME AND APPARENTLY HADN'T LEFT HOME IN AT LEAST 1 WEEK. MEAL ON WHEELS HAD ACCUMULATED AT FRONT DOOR. HE HAD BEEN INCONTINENCT MULTI TIMES IN SATURATED LINENS W/JUGS URINE EVERYWHERE. PT IS CURRENLTLY DECONDITIONED W/ABILITY TO STAND BUT UNABLE TO WALK OR PIVOT. BED ALARM ON FOR IMPULSIVITY, AMS AND FALL RISK. ADMIT ORDERS WERE CLARIFIED AND MD AWARE OF HTN BUT DIDN'T WANT TO COMMENCE ANYTHING NEW SINCE HE HADN'T BEEN ON ANYTHING AT HOME. HE INTENDS TO HAVE DAY MD EVALUATE. LACTULOSE WAS RX'D PER [facility]VIOUS HOSP[facility] D/C DOSING AND WILL START AT 0900. SNACKS HAVE BEEN PROVIDED AND DESPITE PT SAYING HE HADN'T EATEN "D/T NOT BEING HUNGRY" HE HAS GOOD APPETITE NOW. HE ANSWERS SOME Q'S APPROPRIATELY BUT ALSO HAS TENDENCY OF REPEATING WHAT IS SAID TO HIM. AMMONIA LEVEL WAS ELEVATED AT 96. PT DOESN'T APPEAR TO HAVE UTI. HE IS FREQUENTLY INCONTINENT W/ATTENDS ON. RASH/REDNESS NOTED TO INNER THIGHS LIKELEY D/T REPEATED INCONTINENCE PRIOR TO ADMIT. NO ACUTE CHANGES. WILL MONITOR AND REPORT TO DAY RN.
[2018-09-18 05:44] LABS: BASOPHILS ABSOLUTE AUTO 0.14 K/mm3 (0.00-0.23); BASOPHILS PERCENT AUTO 2 % (0-2); EOSINOPHILS ABSOLUTE AUTO 0.23 K/mm3 (0.00-0.68); EOSINOPHILS PERCENT AUTO 3 % (0-6); Hemoglobin 16.8 g/dL (13.5-17.5); IMMATURE GRAN ABSOLUTE AUTO 0.02 K/mm3 (0.00-0.10); IMMATURE GRAN PERCENT AUTO 0 % (0-1); LYMPHOCYTES ABSOLUTE AUTO 3.26 K/mm3 (0.84-5.20); LYMPHOCYTES PERCENT AUTO 40 % (21-46); MONOCYTES ABSOLUTE AUTO 1.49 K/mm3 (0.16-1.47); MONOCYTES PERCENT AUTO 18 % (4-13); Mean Corpuscular HGB 31.8 pg (26.0-34.0); Mean Corpuscular HGB Conc 34.3 g/dL (31.5-36.5); Mean Corpuscular Volume 93 fL (80-100); Mean Platelet Volume 12.2 fL (9.1-12.4); NEUTROPHILS ABSOLUTE AUTO 3.11 K/mm3 (1.96-9.15); NEUTROPHILS PERCENT AUTO 38 % (41-73); Platelet Count 144 K/mm3 (150-400); RDW Standard Deviation 51.1 fL (35.1-46.3); Red Blood Cell Count 5.29 M/mm3 (4.30-5.90); White Blood Cell Count 8.25 K/mm3 (4.00-11.30)
[2018-09-18 06:25] LABS: Alanine Aminotransfer (ALT/SGP 34 U/L (12-78); Albumin, Blood 2.8 g/dL (3.4-5.0); Albumin/Globulin Ratio 0.7 (0.8-1.8); Alk Phos 112 U/L (50-136); Anion Gap 9 mmol/L (6-16); Aspartate Aminotrans (AST/SGOT 42 U/L (12-37); Bilirubin, Total 1.5 mg/dL (0.1-1.0); Blood Urea Nitrogen 10 mg/dL (8-24); Bun/Creatinine Ratio 13.4 (12.0-20.0); CO2, Blood 23 mmol/L (21-32); Calcium, Blood 8.4 mg/dL (8.5-10.1); Chloride, Blood 114 mmol/L (98-108); Creatinine, Blood 0.75 mg/dL (0.60-1.20); Globulin, Blood 4.3 g/dL (2.2-4.0); Glomerular Filtration Rate >60 (60-); Glucose, Blood 92 mg/dL (70-99); Potassium, Blood 3.3 mmol/L (3.5-5.5); Sodium, Blood 146 mmol/L (136-145); Total Protein, Blood 7.1 g/dL (6.4-8.2)
--- NOTE | 2018-09-18 18:46 | NUR ---
PT ALERT THIS AM WAS ABLE TO ANSWER SOME SIMPLE QUESTIONS, PT WAS ABLE TO TAKE MEDICATION THIS AFTERNOON THE PT WAS MORE DIFFICULT TO AWAKEN WAS STILL ABLE TO DRINK AND TAKE HIS LACTULOSE, PT SLEPT HEAVILY FOR MOST OF THE DAY, THEN THIS EVENING WAS ABLE TO AWAKEN AND EAT SOME, HE HAD A SMALL BM THIS AM AND WAS ABLE TO VOID, BED ALARM ON CA,LL LIGHT IN REACH
[2018-09-19 05:32] LABS: BASOPHILS ABSOLUTE AUTO 0.11 K/mm3 (0.00-0.23); BASOPHILS PERCENT AUTO 1 % (0-2); EOSINOPHILS PERCENT AUTO 2 % (0-6); Hematocrit 44.2 % (37.0-53.0); Hemoglobin 15.4 g/dL (13.5-17.5); IMMATURE GRAN ABSOLUTE AUTO 0.02 K/mm3 (0.00-0.10); IMMATURE GRAN PERCENT AUTO 0 % (0-1); LYMPHOCYTES ABSOLUTE AUTO 3.07 K/mm3 (0.84-5.20); LYMPHOCYTES PERCENT AUTO 37 % (21-46); MONOCYTES ABSOLUTE AUTO 1.57 K/mm3 (0.16-1.47); MONOCYTES PERCENT AUTO 19 % (4-13); Mean Corpuscular HGB Conc 34.8 g/dL (31.5-36.5); Mean Corpuscular Volume 92 fL (80-100); NEUTROPHILS ABSOLUTE AUTO 3.34 K/mm3 (1.96-9.15); NEUTROPHILS PERCENT AUTO 40 % (41-73); Platelet Count 127 K/mm3 (150-400); RDW Coefficient Variation 14.8 % (11.7-14.2); Red Blood Cell Count 4.82 M/mm3 (4.30-5.90); White Blood Cell Count 8.31 K/mm3 (4.00-11.30)
[2018-09-19 05:44] LABS: Albumin, Blood 2.4 g/dL (3.4-5.0); Anion Gap 8 mmol/L (6-16); Blood Urea Nitrogen 8 mg/dL (8-24); Bun/Creatinine Ratio 10.9 (12.0-20.0); CO2, Blood 22 mmol/L (21-32); Calcium, Blood 8.1 mg/dL (8.5-10.1); Chloride, Blood 114 mmol/L (98-108); Creatinine, Blood 0.74 mg/dL (0.60-1.20); Glomerular Filtration Rate >60 (60-); Glucose, Blood 80 mg/dL (70-99); Potassium, Blood 3.6 mmol/L (3.5-5.5); Sodium, Blood 144 mmol/L (136-145)
--- NOTE | 2018-09-19 05:53 | NUR ---
SUMMARY: PT'S MENTATION IS CLEARING. HE'S HAD 3+ LIQUID BM'S SINCE COMMENCING LACTULOSE AND IS ABLE TO ANSWER Q'S APPROPRIATELY W/ONLY MINIMAL CONFUSION TO DATE. HE HAS USED CALL LIGHT CORRECTLY INTERMITTENTLY OR CALLS INTO HALLS. HE'S ACKNOWLEDGED HE NEEDS TO REMAIN COMPLIANT W/HOME MEDS TO PREVENT FUTURE HOSPITALISATIONS AND STATED "I LEARNED MY LESSON". HE IS HOPEFUL TO RETURN HOME UPON D/C. HE SLEPT MAJORITY OF NIGHT BUT AWOKE FOR BEDPAN USE/URINAL ASSIST AND SNACKS. HE CONT'S WEAK/DECONDITIONED AND LACKS BLE COORDINATION. AMMONIA TRENDING DOWNWARD AGAIN, NOW 121. VSS/AFEBRILE, NO ACUTE CHANGES. WILL MONITOR AND REPORT TO DAY RN.
--- NOTE | 2018-09-19 16:33 | NUR ---
PT IS A/OX3, PLEASANT AND COOPERATIVE TODAY, THE PT IS A MINIMAL ASSIST UP TO THE CHAIR, THE PT WORKED WITH THE PHYSICAL THERAPIST TODAY AND AMBULATED OUT INTO THE [place] WITH THE FWW, THE PT APPEARS TO BE BREATHING EASILY ON RA, THE PT THIS AM DENIED ANY PAIN, N/V, AND SOB, BED, THE PT HAS BEEN COMPLIANT WITH HIS MEDS 1 DOSE OF LACTULOSE WAS HELD THIS AFTERNOON DUE TO 4-5 LOOSE WATERY STOOLS THIS AM, BED ALARM MONOGRAM OPERATOR LIGHT IN REACH
--- NOTE | 2018-09-20 02:51 | NUR ---
PT WITH ETOH WITHDRAWL ENCEPHALOPATHY. hE IS WEAK AND HAS VERY UNSTEADY GAIT. HE IS HIGH FALL RISK VERY POOR BALANCE AND POOR SAFETY AWARENESS. HE LIVES ALONE UNSURE WHERE HE LIVES AND SAYS HE USES WHEELCHAIR BASELINE. INCONTINENT OF LARGE AMTS OF URINE SAYS HE JUST CLEANS IT UP IF HE IS INCONTINENT AT HOME. UP WITH 2 ASSIST GAIT BELT FWW. STILL UNSTEADY.
[2018-09-20 04:50] LABS: BASOPHILS PERCENT AUTO 1 % (0-2); EOSINOPHILS ABSOLUTE AUTO 0.29 K/mm3 (0.00-0.68); EOSINOPHILS PERCENT AUTO 3 % (0-6); Hemoglobin 15.3 g/dL (13.5-17.5); IMMATURE GRAN ABSOLUTE AUTO 0.06 K/mm3 (0.00-0.10); IMMATURE GRAN PERCENT AUTO 1 % (0-1); LYMPHOCYTES ABSOLUTE AUTO 3.23 K/mm3 (0.84-5.20); LYMPHOCYTES PERCENT AUTO 35 % (21-46); MONOCYTES ABSOLUTE AUTO 1.76 K/mm3 (0.16-1.47); MONOCYTES PERCENT AUTO 19 % (4-13); Mean Corpuscular HGB 32.6 pg (26.0-34.0); Mean Corpuscular HGB Conc 34.8 g/dL (31.5-36.5); Mean Corpuscular Volume 94 fL (80-100); Mean Platelet Volume 11.5 fL (9.1-12.4); NEUTROPHILS ABSOLUTE AUTO 3.85 K/mm3 (1.96-9.15); NEUTROPHILS PERCENT AUTO 42 % (41-73); Platelet Count 116 K/mm3 (150-400); RDW Standard Deviation 51.8 fL (35.1-46.3); Red Blood Cell Count 4.69 M/mm3 (4.30-5.90); White Blood Cell Count 9.29 K/mm3 (4.00-11.30)
[2018-09-20 05:04] LABS: Albumin, Blood 2.5 g/dL (3.4-5.0); Anion Gap 8 mmol/L (6-16); Blood Urea Nitrogen 7 mg/dL (8-24); Bun/Creatinine Ratio 9.8 (12.0-20.0); CO2, Blood 22 mmol/L (21-32); Calcium, Blood 7.9 mg/dL (8.5-10.1); Chloride, Blood 115 mmol/L (98-108); Creatinine, Blood 0.71 mg/dL (0.60-1.20); Glomerular Filtration Rate >60 (60-); Glucose, Blood 92 mg/dL (70-99); Phosphorus, Blood 2.2 mg/dL (2.5-4.9); Potassium, Blood 3.6 mmol/L (3.5-5.5); Sodium, Blood 145 mmol/L (136-145)
--- NOTE | 2018-09-20 18:39 | NUR ---
NO ACUTE CHANGES. PATIENTS MENTATION CONTINUES TO IMPROVE. WALKED IN [place] WITH FFW AND PT. NO COMPLAINTS THIS SHIFT. CIWA'S ALL <3 THIS SHIFT.
--- NOTE | 2018-09-21 05:14 | NUR ---
pt much more appropraite and has zero ciwa score all night. continent of bowel and bladder. Cooperative with medications and therapies. Has help at home with caregiver coming 2 x week to clean and wants to dc home when cleared with home health. PT expressed desire to stop drinking. Awaiting AM lab results to assess ammonia level. Appetite good. Pleasant. Encouragement offered to stop ETOH use.
[2018-09-21 05:48] LABS: BASOPHILS ABSOLUTE AUTO 0.08 K/mm3 (0.00-0.23); BASOPHILS PERCENT AUTO 1 % (0-2); EOSINOPHILS ABSOLUTE AUTO 0.41 K/mm3 (0.00-0.68); EOSINOPHILS PERCENT AUTO 4 % (0-6); Hematocrit 45.6 % (37.0-53.0); Hemoglobin 15.3 g/dL (13.5-17.5); IMMATURE GRAN ABSOLUTE AUTO 0.06 K/mm3 (0.00-0.10); IMMATURE GRAN PERCENT AUTO 1 % (0-1); LYMPHOCYTES ABSOLUTE AUTO 3.12 K/mm3 (0.84-5.20); LYMPHOCYTES PERCENT AUTO 33 % (21-46); MONOCYTES ABSOLUTE AUTO 1.87 K/mm3 (0.16-1.47); MONOCYTES PERCENT AUTO 20 % (4-13); Mean Corpuscular HGB 31.5 pg (26.0-34.0); Mean Corpuscular HGB Conc 33.6 g/dL (31.5-36.5); Mean Corpuscular Volume 94 fL (80-100); Mean Platelet Volume 12.2 fL (9.1-12.4); NEUTROPHILS ABSOLUTE AUTO 3.81 K/mm3 (1.96-9.15); NEUTROPHILS PERCENT AUTO 41 % (41-73); Platelet Count 120 K/mm3 (150-400); RDW Coefficient Variation 14.7 % (11.7-14.2); RDW Standard Deviation 51.4 fL (35.1-46.3); Red Blood Cell Count 4.86 M/mm3 (4.30-5.90); White Blood Cell Count 9.35 K/mm3 (4.00-11.30)
[2018-09-21 06:04] LABS: Albumin, Blood 2.4 g/dL (3.4-5.0); Anion Gap 7 mmol/L (6-16); Blood Urea Nitrogen 7 mg/dL (8-24); Bun/Creatinine Ratio 10.5 (12.0-20.0); CO2, Blood 20 mmol/L (21-32); Chloride, Blood 116 mmol/L (98-108); Creatinine, Blood 0.66 mg/dL (0.60-1.20); Glomerular Filtration Rate >60 (60-); Glucose, Blood 100 mg/dL (70-99); Potassium, Blood 3.9 mmol/L (3.5-5.5); Sodium, Blood 143 mmol/L (136-145)
--- NOTE | 2018-09-21 18:09 | NUR ---
NO ACUTE CHANGES THIS SHIFT. PATIENTS AMMONIA LEVELS JEAN CLAUDE FROM LAST SHIFT WHICH STALLED DC PROCESS. PATIENTS MENTATION IS MUCH IMPROVED. HE WORKED WITH PT THIS SHIFT AND CONTINUES TO IMPROVE WITH BALANCE AND AMBULATION. CALL LIGHT WITH IN REACH, WILL REPORT TO FARM WORKER.
--- NOTE | 2018-09-22 04:34 | NUR ---
SHIFT SUMMARY PT HAD UNEVENTFUL NIGHT. REPORTS OVERALL FEELING BACK TO BASELINE MENTATION. HOWEVER, PT CONTINUES TO BE UNSTEADY ON HIS FEET. USES WALKER AND SBA TO AMBULATE. PT HAD ONE LOOSE LACTULOSE STOOL, CONTINENT. USED URINAL WHILE IN THE BED. CIWA SCORES 0 THROUGHOUT THE NIGHT. PT HOPING AMMONIA LEVELS HAVE GONE DOWN TODAY AND HE WILL BE D/C'D HOME. NO COMPLAINTS OF PAIN. VSS.
[2018-09-22 06:16] LABS: Albumin, Blood 2.4 g/dL (3.4-5.0); Anion Gap 6 mmol/L (6-16); Blood Urea Nitrogen 7 mg/dL (8-24); Bun/Creatinine Ratio 9.1 (12.0-20.0); CO2, Blood 24 mmol/L (21-32); Calcium, Blood 8.2 mg/dL (8.5-10.1); Chloride, Blood 113 mmol/L (98-108); Creatinine, Blood 0.77 mg/dL (0.60-1.20); Glomerular Filtration Rate >60 (60-); Glucose, Blood 95 mg/dL (70-99); Phosphorus, Blood 2.9 mg/dL (2.5-4.9); Potassium, Blood 3.7 mmol/L (3.5-5.5); Sodium, Blood 143 mmol/L (136-145)
--- NOTE | 2018-09-22 16:40 | NUR ---
SHIFT SUMMARY PT HAS HAD NO COMPLAINTS THIS SHIFT. PT WAS HOPING TO GO HOME TODAY BUT PT'S AMMONIA LEVEL HIGHER TODAY THAN YESTERDAY. PT CALLS APPROPRIATELY. PT IS A&OX3. DENIES PAIN. PT HAS A GOOD APPETITE. NO ACUTE CHANGES THIS SHIFT. CALL LIGHT IN REACH. WILL CONTINUE TO MONITOR AND REPORT TO ONCOMING RN.
--- NOTE | 2018-09-23 04:18 | NUR ---
SHIFT SUMMARY NO ACUTE CHANGES. 4 LOOSE STOOLS THIS EVENING. INCONTINENT FOR ONE DUE TO URGENCY. PT'S MENTATION CLEAR. PT IS ALERT AND ORIENTED. 1 ASSIST W/ FWW. SLIGHTLY UNSTEADY BUT IMPROVING. NO COMPLAINTS OF PAIN. PT SLEPT BETTER THIS EVENING THAN NIGHT BEFORE. WILL CONTINUE TO MONITOR.
[2018-09-23 04:54] LABS: BASOPHILS ABSOLUTE AUTO 0.14 K/mm3 (0.00-0.23); BASOPHILS PERCENT AUTO 2 % (0-2); EOSINOPHILS PERCENT AUTO 5 % (0-6); Hematocrit 45.2 % (37.0-53.0); Hemoglobin 15.3 g/dL (13.5-17.5); IMMATURE GRAN ABSOLUTE AUTO 0.07 K/mm3 (0.00-0.10); IMMATURE GRAN PERCENT AUTO 1 % (0-1); LYMPHOCYTES ABSOLUTE AUTO 3.06 K/mm3 (0.84-5.20); LYMPHOCYTES PERCENT AUTO 35 % (21-46); MONOCYTES ABSOLUTE AUTO 1.58 K/mm3 (0.16-1.47); MONOCYTES PERCENT AUTO 18 % (4-13); Mean Corpuscular HGB 31.9 pg (26.0-34.0); Mean Corpuscular HGB Conc 33.8 g/dL (31.5-36.5); Mean Corpuscular Volume 94 fL (80-100); Mean Platelet Volume 12.2 fL (9.1-12.4); NEUTROPHILS ABSOLUTE AUTO 3.49 K/mm3 (1.96-9.15); NEUTROPHILS PERCENT AUTO 40 % (41-73); Platelet Count 137 K/mm3 (150-400); RDW Coefficient Variation 14.8 % (11.7-14.2); RDW Standard Deviation 51.8 fL (35.1-46.3); White Blood Cell Count 8.74 K/mm3 (4.00-11.30)
[2018-09-23 05:15] LABS: Albumin, Blood 2.5 g/dL (3.4-5.0); Anion Gap 5 mmol/L (6-16); Blood Urea Nitrogen 9 mg/dL (8-24); Bun/Creatinine Ratio 11.9 (12.0-20.0); CO2, Blood 24 mmol/L (21-32); Calcium, Blood 8.3 mg/dL (8.5-10.1); Chloride, Blood 114 mmol/L (98-108); Creatinine, Blood 0.76 mg/dL (0.60-1.20); Glomerular Filtration Rate >60 (60-); Glucose, Blood 95 mg/dL (70-99); Phosphorus, Blood 3.2 mg/dL (2.5-4.9); Potassium, Blood 3.9 mmol/L (3.5-5.5); Sodium, Blood 143 mmol/L (136-145)
[2018-09-23] MEDS ORDERED: NEOM500 PO (11:43)
--- NOTE | 2018-09-23 12:43 | NUR ---
DISCHARGE DISCHARGE MEDICATIONS AND INSTRUCTIONS EXPLAINED TO PATIENT. PATIENT STATES UNDERSTANDING. IV REMOVED WITHOUT DIFFICULTY. HOME HEALTH REFERRAL FAXED TO [facility] PER PATIENT REQUEST. PATIENT STATES HE HAS CALLED HIS HOME CARE AGENCY TO INFORM THEM OF DISCHARGE. PATIENT TRANSFERED TO PRIVATE VEHICLE VIA WHEELCHAIR.
== END 2018-09-23 12:39 | disposition home health service (06) | DRG 897 ==
LOC: ER 20:15 → MEDS 09-18 01:09
PROVIDERS: Emergency Medicine; Family Medicine; Physician Assistant; ADMIT Hospitalist
DX: F10.231 Alcohol dependence with withdrawal delirium (principal); E87.0 Hyperosmolality and hypernatremia; K70.30 Alcoholic cirrhosis of liver without ascites; I48.91 Unspecified atrial fibrillation; F10.27 Alcohol dependence with alcohol-induced persisting dementia; I10 Essential (primary) hypertension; G31.2 Degeneration of nervous system due to alcohol; K70.40 Alcoholic hepatic failure without coma; F17.210 Nicotine dependence, cigarettes, uncomplicated; Z91.14 Patient's other noncompliance with medication regimen; D69.6 Thrombocytopenia, unspecified; E87.6 Hypokalemia; E16.2 Hypoglycemia, unspecified
CPT/HCPCS: 36415; 51701; 70450; 71046; 80053; 80069; 81001; 82140; 83605; 84484; 85025; 93005; 93010; 97110; 97116; 97162; 97165; 97530; 97535; 99285-25; G0480; J1650; J3411; J3475; J3480; J7042

== ENCOUNTER → 2018-10-01 | Outpatient (CLI) | payer OTHER ==
[~2018-10-01] MED LIST changes: +LO-DOSE ASPIRIN81 MG PO; +MIRT30 PO; +NEOM500 PO; +Nicoderm Cq1 EAC1 TOP; +PROP10 PO; +Thiamine HCl100 MG PO
[2018-10-01 16:58] LABS: BASOPHILS ABSOLUTE AUTO 0.09 K/mm3 (0.00-0.23); BASOPHILS PERCENT AUTO 1 % (0-2); EOSINOPHILS ABSOLUTE AUTO 0.38 K/mm3 (0.00-0.68); EOSINOPHILS PERCENT AUTO 4 % (0-6); Hematocrit 43.6 % (37.0-53.0); Hemoglobin 15.7 g/dL (13.5-17.5); IMMATURE GRAN ABSOLUTE AUTO 0.05 K/mm3 (0.00-0.10); IMMATURE GRAN PERCENT AUTO 1 % (0-1); LYMPHOCYTES PERCENT AUTO 26 % (21-46); MONOCYTES ABSOLUTE AUTO 1.76 K/mm3 (0.16-1.47); MONOCYTES PERCENT AUTO 17 % (4-13); Mean Corpuscular HGB 32.4 pg (26.0-34.0); Mean Corpuscular Volume 90 fL (80-100); Mean Platelet Volume 11.6 fL (9.1-12.4); NEUTROPHILS ABSOLUTE AUTO 5.36 K/mm3 (1.96-9.15); NEUTROPHILS PERCENT AUTO 52 % (41-73); Platelet Count 163 K/mm3 (150-400); RDW Coefficient Variation 14.1 % (11.7-14.2); Red Blood Cell Count 4.85 M/mm3 (4.30-5.90); White Blood Cell Count 10.34 K/mm3 (4.00-11.30)
[2018-10-01 17:09] LABS: Alanine Aminotransfer (ALT/SGP 36 U/L (12-78); Albumin/Globulin Ratio 0.7 (0.8-1.8); Alk Phos 148 U/L (40-126); Anion Gap 9 mmol/L (6-16); Aspartate Aminotrans (AST/SGOT 52 U/L (12-37); Bilirubin, Total 1.6 mg/dL (0.1-1.0); Blood Urea Nitrogen 10 mg/dL (8-24); Bun/Creatinine Ratio 12.2 (12.0-20.0); CO2, Blood 22 mmol/L (21-32); Calcium, Blood 8.7 mg/dL (8.5-10.1); Chloride, Blood 103 mmol/L (98-108); Creatinine, Blood 0.82 mg/dL (0.60-1.20); Globulin, Blood 4.6 g/dL (2.2-4.0); Glomerular Filtration Rate >60 (60-); Glucose, Blood 88 mg/dL (70-99); Potassium, Blood 4.2 mmol/L (3.5-5.5); Sodium, Blood 134 mmol/L (136-145); Total Protein, Blood 7.6 g/dL (6.4-8.2); Uric Acid, Blood 4.5 mg/dL (3.5-7.2)
== END | disposition home or self-care (01) ==
LOC: LAB EV 16:54 → LAB SHORT 16:54
PROVIDERS: Physician Assistant Medical
DX: M79.672 Pain in left foot (principal)
CPT/HCPCS: 80053; 84550; 85025

== ENCOUNTER 2018-10-13 19:31 | Observation (INO) | payer OTHER ==
[~2018-10-13] VITALS: Ht 182.9 cm; Wt 95.3 kg
[~2018-10-13 19:31] MED LIST changes: -LO-DOSE ASPIRIN81 MG PO; -MIRT30 PO; -PROP10 PO
[2018-10-13 20:07] LABS: BASOPHILS ABSOLUTE AUTO 0.11 K/mm3 (0.00-0.23); BASOPHILS PERCENT AUTO 1 % (0-2); EOSINOPHILS ABSOLUTE AUTO 0.29 K/mm3 (0.00-0.68); EOSINOPHILS PERCENT AUTO 4 % (0-6); Hemoglobin 16.2 g/dL (13.5-17.5); IMMATURE GRAN ABSOLUTE AUTO 0.08 K/mm3 (0.00-0.10); IMMATURE GRAN PERCENT AUTO 1 % (0-1); LYMPHOCYTES PERCENT AUTO 34 % (21-46); MONOCYTES ABSOLUTE AUTO 1.24 K/mm3 (0.16-1.47); MONOCYTES PERCENT AUTO 15 % (4-13); Mean Corpuscular HGB 31.9 pg (26.0-34.0); Mean Corpuscular HGB Conc 34.5 g/dL (31.5-36.5); Mean Platelet Volume 11.2 fL (9.1-12.4); NEUTROPHILS ABSOLUTE AUTO 3.64 K/mm3 (1.96-9.15); NEUTROPHILS PERCENT AUTO 45 % (41-73); Platelet Count 207 K/mm3 (150-400); RDW Coefficient Variation 14.6 % (11.7-14.2); RDW Standard Deviation 49.6 fL (35.1-46.3); Red Blood Cell Count 5.08 M/mm3 (4.30-5.90); White Blood Cell Count 8.16 K/mm3 (4.00-11.30)
[2018-10-13 20:08] LABS: Mean Corpuscular Volume 93 fL (80-100)
[2018-10-13 20:22] LABS: Alanine Aminotransfer (ALT/SGP 26 U/L (12-78); Albumin, Blood 2.8 g/dL (3.4-5.0); Albumin/Globulin Ratio 0.7 (0.8-1.8); Alk Phos 112 U/L (50-136); Anion Gap 7 mmol/L (6-16); Aspartate Aminotrans (AST/SGOT 57 U/L (12-37); Bilirubin, Total 1.5 mg/dL (0.1-1.0); Blood Urea Nitrogen 10 mg/dL (8-24); Bun/Creatinine Ratio 13.6 (12.0-20.0); CO2, Blood 22 mmol/L (21-32); Chloride, Blood 115 mmol/L (98-108); Creatinine, Blood 0.74 mg/dL (0.60-1.20); Ethanol (Alcohol), Blood, Med <3 mg/dL; Free Thyroxine 0.85 ng/dL (0.70-1.60); Globulin, Blood 4.3 g/dL (2.2-4.0); Glomerular Filtration Rate >60 (60-); Glucose, Blood 115 mg/dL (70-99); Potassium, Blood 4.5 mmol/L (3.5-5.5); Sodium, Blood 144 mmol/L (136-145); Total Protein, Blood 7.1 g/dL (6.4-8.2)
[2018-10-13 22:19] LABS: International Normalized Ratio 1.25
[2018-10-14 04:59] LABS: Hematocrit 44.1 % (37.0-53.0); Hemoglobin 15.1 g/dL (13.5-17.5); Mean Corpuscular HGB 31.9 pg (26.0-34.0); Mean Corpuscular HGB Conc 34.2 g/dL (31.5-36.5); Mean Corpuscular Volume 93 fL (80-100); Mean Platelet Volume 10.6 fL (9.1-12.4); Platelet Count 169 K/mm3 (150-400); RDW Coefficient Variation 14.5 % (11.7-14.2); RDW Standard Deviation 49.8 fL (35.1-46.3); Red Blood Cell Count 4.74 M/mm3 (4.30-5.90); White Blood Cell Count 8.91 K/mm3 (4.00-11.30)
[2018-10-14 05:22] LABS: Alanine Aminotransfer (ALT/SGP 24 U/L (12-78); Albumin, Blood 2.5 g/dL (3.4-5.0); Albumin/Globulin Ratio 0.7 (0.8-1.8); Alk Phos 125 U/L (50-136); Anion Gap 8 mmol/L (6-16); Aspartate Aminotrans (AST/SGOT 35 U/L (12-37); Bilirubin, Total 1.2 mg/dL (0.1-1.0); Blood Urea Nitrogen 9 mg/dL (8-24); Bun/Creatinine Ratio 11.2 (12.0-20.0); CO2, Blood 22 mmol/L (21-32); Calcium, Blood 7.8 mg/dL (8.5-10.1); Chloride, Blood 113 mmol/L (98-108); Globulin, Blood 3.7 g/dL (2.2-4.0); Glomerular Filtration Rate >60 (60-); Glucose, Blood 104 mg/dL (70-99); Potassium, Blood 3.5 mmol/L (3.5-5.5); Sodium, Blood 143 mmol/L (136-145); Total Protein, Blood 6.2 g/dL (6.4-8.2)
--- NOTE | 2018-10-14 06:18 | NUR ---
SHIFT SUMMARY: PATIENT WAS ADMITTED TO FLOOR AROUND 2214, VIA GURNEY, TRANSFERED WITH STAND BY ASSIST TO 1 PERSON TO BED. HE WAS ALERT AND ORIENTED TO SELF. HAS HISTORY OF ETOH, QUIT DRINKING 2 WEEKS AGO. DENIES ANY ALCOHOL WITHDRAWL SYMPTOMS AT THIS TIME. NO TREMORS OR OTHER SIGNS ARE NOTED. HE WAS ADMITTED DUE TO WEAKNESS IN BLE. STATES HE WAS SUPPOSE TO TAKE A NEW MED TO REPLACE HIS LACTOLOSE BUT THE PHARMACY DID NOT GET IT IN. HE HAD ALREADY STOPPED HIS LACTOLOSE. THEREFORE WENT SEVERAL DAYS WITH OUT ANYTHING. HE NEW THAT HIS AMONNIA LEVELS WERE ELEVATED AND THEY WERE UP TO 149, THEREFORE HE WAS ADMITTED. HE IS PLEASANT AND COOPERATIVE. WAS STARTED ON A BANNANA BAG IN ER. THIS WAS FINISHED ON THIS SHIFT AND HE WAS SL TO THE 18G R AC. HE HAS REMAINED APPROPRIATE ALL NIGHT WITH NO SYMTPOMS OF ETOH WITHDRAWL. HE SLEPT OFF AND ON AND DID NOT HAVE ANY COMPLAINTS THROUGHOUT THE NIGHT.
[2018-10-14 12:39] LABS: Source, Urine Clean Catch
[2018-10-14 12:43] LABS: Bilirubin, Urine Neg (Neg); Blood, Urine Neg (Neg); Glucose Qualitative, Urine Neg (Neg); Ketones, Urine 1+ (Neg); Leukocyte Esterase, Urine 1+ (Neg); Nitrite, Urine Neg (Neg); Protein, Urine Neg (Neg); Urobilinogen, Urine 2+ (Normal)
[2018-10-14 13:01] LABS: Appearance, Urine Clear (Clear); Color, Urine Yellow (P-Yellow); U Amphetamine Screen Not Detected; U Barbituate Screen Not Detected; U Benzodiazapine Screen Not Detected; U Buprenorphine Screen Not Detected; U Cannabinoids Screen DETECTED; U Cocaine Screen Not Detected; U Methadone Screen Not Detected; U Methamphetamine Screen Not Detected; U Opiates Screen DETECTED; U Oxycodone Screen Not Detected; U Phencyclidine Screen Not Detected; U Propoxyphene Screen Not Detected
[2018-10-14 13:03] LABS: Bacteria Rare /hpf; Red Blood Cells, Urine 0-2 /hpf (0-2); Squamous Epithelial Cells Rare /hpf (Few); White Blood Cells, Urine 0-2 /hpf (0-5)
[2018-10-14 13:04] LABS: Mucus Light ({null, 0-Heavy})
--- NOTE | 2018-10-14 18:16 | NUR ---
SHIFT SUMMARY PT AXO, PLEASANT AND COOPERATIVE WITH CARE. VSS. PT DENIES PAIN, SOB AND N/V. PT WORKED WITH PHYSICAL THERAPY, SEE NOTE. PT UP WITH 1 ASSIST, CALLS APPROPRIATELY. NO BM YET THIS SHIFT. IV PATENT AND SALINE LOCKED. BED IN LOW POSITION, CALL LIGHT WITHIN REACH. PT ASKED TO SEE A CAREER PORTALS TEACHER TO LEARN ABOUT DIET MODIFICATIONS TO PREVENT FURTHER AMMONIA SPIKES. ORDER PLACED PER DR VELÁSQUEZ.
--- NOTE | 2018-10-14 20:30 | NUR ---
TRANSFERRED CARE TO [facility]
--- NOTE | 2018-10-14 21:23 | NUR ---
SHIFT CHANGE: ASSUMED CARE OF PATIENT, PATIENT SLEEPING IN ROOM, EASILY ARROUSED. DENIED ANY PAIN OR DISCOMFORT. LUNG SOUNDS WERE CLEAR THROGHOUT, DENIES SOB. HR REGULAR, NO CHEST PAIN OR DISCOMFORT, DENIES DIZZINESS. DENIES ANY OTHER CHANGES FROM DAY SHIFT. STATES HE JUST WOULD LIKE TO SLEEP HAS NOT SLEPT MUCH. IV FLUSHED WITH 10CC OF NORMAL SALINE.
--- NOTE | 2018-10-15 03:29 | NUR ---
PT COMPLAINED OF SOME INCREASED CONFUSION, EXPRESSIVE DYSPHASIA AND MORE WEAKNESS. PT SCORED A 6 ON CIWA AND WAS GIVEN ATIVAN PER EMAR. PT STATES HE TYPICALLY DOES NOT BEGIN HAVING ETOH WITHDRAWLS UNTIL 2 WEEKS AFTER CESSATION OF DRINKING. TODAY IS 2 WEEKS.
--- NOTE | 2018-10-15 06:28 | NUR ---
PT COMPLAINING OF MORE DIZZINESS AND THAT WEAKNESS HAS RETURNED. PT STATES ISSUE IS SIMILAR TO EARLIER. NEURO'S ARE INTACT WITH NOTABLE GENERAL WEAKNESS.
--- NOTE | 2018-10-15 12:06 | NUR ---
Patient is lying in bed and resting. I speak patient's name and he opens his eyes and explains his high levels of amonia and that he is unable to walk and is slow in his speech. Patient, however, was very talkative and told many stories of his life, careers, family, and his dania. 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 Patient is well aware of the fact that his alcoholism is killing him and states that he desperately wants to stop drinking and is ready to make a new run at sobriety. We discussed what that would look like and what it would take to overcome the tiggers from his last several failed attempts. I listened empathically, provided prayer, provided pastoral intake counselor and spiritual guidance and reinforce helpful attitudes and practices. Patient responded well and asked if I could come talk to him agian if he stays another day. I will continue to remain available and will follow up with patient.
--- NOTE | 2018-10-15 16:58 | NUR ---
DISCHARGE SUMMARY [facility]. PT LEFT ROOM AT 1615 VIA WHEELCHAIR AND TRANSPORT. REPORT ATTEMPTED AT 1620, NURSE NOT AVAILABLE AT THAT TIME. IV DC'D AND BELONGINGS RETURNED.
== END 2018-10-15 16:13 ==
LOC: ER 19:31 → MEDS 19:32 → ER 22:00 → MEDS 22:22
PROVIDERS: Emergency Medicine; ADMIT Internal Medicine
DX: R53.1 Weakness (principal); R29.898 Other symptoms and signs involving the musculoskeletal system; R26.9 Unspecified abnormalities of gait and mobility; K70.30 Alcoholic cirrhosis of liver without ascites; I48.91 Unspecified atrial fibrillation; K72.90 Hepatic failure, unspecified without coma; I10 Essential (primary) hypertension; F10.20 Alcohol dependence, uncomplicated; F17.210 Nicotine dependence, cigarettes, uncomplicated; F10.239 Alcohol dependence with withdrawal, unspecified; E86.0 Dehydration; E72.20 Disorder of urea cycle metabolism, unspecified; Z79.82 Long term (current) use of aspirin; Z79.899 Other long term (current) drug therapy; Z88.0 Allergy status to penicillin
CPT/HCPCS: 36415; 70450; 71045; 80053; 81001; 82140; 82607; 82746; 83735; 84439; 84443; 85025; 85027; 85610; 87086; 96365; 96366; 96372; 96375; 97110; 97116; 97161; 97166; 97530; 99285-25; G0378; G0480; J1650; J2060; J3411; J3475; J7042

== ENCOUNTER 2018-11-07 23:28 | Observation (INO) | payer OTHER ==
[~2018-11-07] VITALS: Ht 182.9 cm; Wt 90.7 kg
[2018-11-08 00:12] LABS: BASOPHILS PERCENT AUTO 1 % (0-2); EOSINOPHILS ABSOLUTE AUTO 0.37 K/mm3 (0.00-0.68); EOSINOPHILS PERCENT AUTO 4 % (0-6); Hematocrit 42.9 % (37.0-53.0); Hemoglobin 14.7 g/dL (13.5-17.5); IMMATURE GRAN PERCENT AUTO 1 % (0-1); LYMPHOCYTES ABSOLUTE AUTO 4.11 K/mm3 (0.84-5.20); LYMPHOCYTES PERCENT AUTO 39 % (21-46); MONOCYTES ABSOLUTE AUTO 1.44 K/mm3 (0.16-1.47); MONOCYTES PERCENT AUTO 14 % (4-13); Mean Corpuscular HGB 32.3 pg (26.0-34.0); Mean Corpuscular HGB Conc 34.3 g/dL (31.5-36.5); Mean Corpuscular Volume 94 fL (80-100); Mean Platelet Volume 11.6 fL (9.1-12.4); NEUTROPHILS ABSOLUTE AUTO 4.34 K/mm3 (1.96-9.15); NEUTROPHILS PERCENT AUTO 41 % (41-73); Platelet Count 165 K/mm3 (150-400); RDW Coefficient Variation 14.1 % (11.7-14.2); RDW Standard Deviation 48.6 fL (35.1-46.3); Red Blood Cell Count 4.55 M/mm3 (4.30-5.90); White Blood Cell Count 10.46 K/mm3 (4.00-11.30)
[2018-11-08 00:29] LABS: Alanine Aminotransfer (ALT/SGP 43 U/L (12-78); Albumin, Blood 2.8 g/dL (3.4-5.0); Albumin/Globulin Ratio 0.8 (0.8-1.8); Alk Phos 150 U/L (50-136); Anion Gap 11 mmol/L (6-16); Aspartate Aminotrans (AST/SGOT 79 U/L (12-37); Bilirubin, Total 0.7 mg/dL (0.1-1.0); Blood Urea Nitrogen 7 mg/dL (8-24); Bun/Creatinine Ratio 8.7 (12.0-20.0); CO2, Blood 18 mmol/L (21-32); Calcium, Blood 7.3 mg/dL (8.5-10.1); Chloride, Blood 112 mmol/L (98-108); Ethanol (Alcohol), Blood, Med 285 mg/dL; Globulin, Blood 3.7 g/dL (2.2-4.0); Glomerular Filtration Rate >60 (60-); Glucose, Blood 111 mg/dL (70-99); Potassium, Blood 3.8 mmol/L (3.5-5.5); Sodium, Blood 141 mmol/L (136-145); Total Protein, Blood 6.5 g/dL (6.4-8.2)
[2018-11-08] MEDS ORDERED: Kristalose20 GM PO (22:13)
== END 2018-11-08 07:23 | disposition home or self-care (01) ==
LOC: ER 23:28 → EOR 23:29
PROVIDERS: ADMIT Emergency Medicine
DX: F10.129 Alcohol abuse with intoxication, unspecified (principal); R42 Dizziness and giddiness; I10 Essential (primary) hypertension; G89.29 Other chronic pain; M54.9 Dorsalgia, unspecified; I48.91 Unspecified atrial fibrillation; F17.200 Nicotine dependence, unspecified, uncomplicated; Z88.0 Allergy status to penicillin; Z79.82 Long term (current) use of aspirin; Z79.899 Other long term (current) drug therapy
CPT/HCPCS: 80053; 85025; 93005; 93010; 96361; 96374; 99284-25; 99285-25; G0378; G0480; J2405; J7030

== ENCOUNTER 2018-11-08 20:51 | Emergency (ER) | payer OTHER ==
[~2018-11-08] VITALS: Ht 182.9 cm; Wt 95.2 kg
[2018-11-08 21:32] LABS: BASOPHILS PERCENT AUTO 1 % (0-2); EOSINOPHILS ABSOLUTE AUTO 0.21 K/mm3 (0.00-0.68); EOSINOPHILS PERCENT AUTO 3 % (0-6); Hematocrit 44.4 % (37.0-53.0); IMMATURE GRAN ABSOLUTE AUTO 0.07 K/mm3 (0.00-0.10); IMMATURE GRAN PERCENT AUTO 1 % (0-1); LYMPHOCYTES ABSOLUTE AUTO 2.25 K/mm3 (0.84-5.20); LYMPHOCYTES PERCENT AUTO 31 % (21-46); MONOCYTES ABSOLUTE AUTO 1.12 K/mm3 (0.16-1.47); MONOCYTES PERCENT AUTO 16 % (4-13); Mean Corpuscular HGB 32.1 pg (26.0-34.0); Mean Corpuscular HGB Conc 33.8 g/dL (31.5-36.5); Mean Corpuscular Volume 95 fL (80-100); Mean Platelet Volume 11.6 fL (9.1-12.4); NEUTROPHILS ABSOLUTE AUTO 3.44 K/mm3 (1.96-9.15); NEUTROPHILS PERCENT AUTO 48 % (41-73); Platelet Count 157 K/mm3 (150-400); RDW Coefficient Variation 14.2 % (11.7-14.2); RDW Standard Deviation 48.9 fL (35.1-46.3); Red Blood Cell Count 4.67 M/mm3 (4.30-5.90); White Blood Cell Count 7.19 K/mm3 (4.00-11.30)
[2018-11-08 21:44] LABS: Alanine Aminotransfer (ALT/SGP 39 U/L (12-78); Albumin, Blood 2.7 g/dL (3.4-5.0); Albumin/Globulin Ratio 0.7 (0.8-1.8); Alk Phos 151 U/L (50-136); Anion Gap 8 mmol/L (6-16); Aspartate Aminotrans (AST/SGOT 57 U/L (12-37); Bilirubin, Total 0.7 mg/dL (0.1-1.0); Blood Urea Nitrogen 7 mg/dL (8-24); Bun/Creatinine Ratio 8.7 (12.0-20.0); CO2, Blood 22 mmol/L (21-32); Calcium, Blood 7.8 mg/dL (8.5-10.1); Chloride, Blood 115 mmol/L (98-108); Ethanol (Alcohol), Blood, Med 125 mg/dL; Globulin, Blood 3.9 g/dL (2.2-4.0); Glomerular Filtration Rate >60 (60-); Glucose, Blood 100 mg/dL (70-99); Potassium, Blood 4.2 mmol/L (3.5-5.5); Sodium, Blood 145 mmol/L (136-145); Total Protein, Blood 6.6 g/dL (6.4-8.2)
[2018-11-08] MEDS ORDERED: Kristalose20 GM PO (22:13)
== END 2018-11-08 23:11 | disposition home or self-care (01) ==
LOC: ER 20:51
PROVIDERS: Emergency Medicine
DX: F10.129 Alcohol abuse with intoxication, unspecified (principal); I48.91 Unspecified atrial fibrillation; I10 Essential (primary) hypertension; F17.200 Nicotine dependence, unspecified, uncomplicated; Z79.899 Other long term (current) drug therapy; Z88.0 Allergy status to penicillin
CPT/HCPCS: 36415; 80053; 82140; 85025; 99285; G0480

== ENCOUNTER 2018-11-14 09:49 | Emergency (ER) | payer OTHER ==
[~2018-11-14] VITALS: Ht 182.9 cm; Wt 90.7 kg
[~2018-11-14 09:49] MED LIST changes: +Kristalose20 GM PO
[2018-11-14 10:35] LABS: Alanine Aminotransfer (ALT/SGP 44 U/L (12-78); Albumin, Blood 2.8 g/dL (3.4-5.0); Albumin/Globulin Ratio 0.6 (0.8-1.8); Alk Phos 212 U/L (50-136); Anion Gap 9 mmol/L (6-16); Aspartate Aminotrans (AST/SGOT 75 U/L (12-37); Bilirubin, Total 0.7 mg/dL (0.1-1.0); Blood Urea Nitrogen 5 mg/dL (8-24); Bun/Creatinine Ratio 7.9 (12.0-20.0); CO2, Blood 24 mmol/L (21-32); Calcium, Blood 7.6 mg/dL (8.5-10.1); Chloride, Blood 110 mmol/L (98-108); Creatinine, Blood 0.63 mg/dL (0.60-1.20); Globulin, Blood 4.6 g/dL (2.2-4.0); Glomerular Filtration Rate >60 (60-); Glucose, Blood 89 mg/dL (70-99); Potassium, Blood 4.6 mmol/L (3.5-5.5); Sodium, Blood 143 mmol/L (136-145); Total Protein, Blood 7.4 g/dL (6.4-8.2)
[2018-11-14 11:03] LABS: BASOPHILS PERCENT AUTO 1 % (0-2); EOSINOPHILS ABSOLUTE AUTO 0.13 K/mm3 (0.00-0.68); EOSINOPHILS PERCENT AUTO 1 % (0-6); Hematocrit 48.3 % (37.0-53.0); Hemoglobin 16.7 g/dL (13.5-17.5); IMMATURE GRAN ABSOLUTE AUTO 0.08 K/mm3 (0.00-0.10); IMMATURE GRAN PERCENT AUTO 1 % (0-1); LYMPHOCYTES PERCENT AUTO 34 % (21-46); MONOCYTES ABSOLUTE AUTO 0.95 K/mm3 (0.16-1.47); MONOCYTES PERCENT AUTO 11 % (4-13); Mean Corpuscular HGB 32.3 pg (26.0-34.0); Mean Corpuscular HGB Conc 34.6 g/dL (31.5-36.5); Mean Corpuscular Volume 93 fL (80-100); Mean Platelet Volume 10.8 fL (9.1-12.4); NEUTROPHILS PERCENT AUTO 52 % (41-73); Platelet Count 186 K/mm3 (150-400); Red Blood Cell Count 5.17 M/mm3 (4.30-5.90); White Blood Cell Count 9.06 K/mm3 (4.00-11.30)
== END 2018-11-14 15:34 | disposition home or self-care (01) ==
LOC: ER 09:49
PROVIDERS: Emergency Medicine
DX: F10.129 Alcohol abuse with intoxication, unspecified (principal); E72.20 Disorder of urea cycle metabolism, unspecified; Z88.0 Allergy status to penicillin; Z79.899 Other long term (current) drug therapy; Z79.82 Long term (current) use of aspirin; I10 Essential (primary) hypertension; I48.91 Unspecified atrial fibrillation; F17.200 Nicotine dependence, unspecified, uncomplicated
CPT/HCPCS: 80053; 82140; 85025; 96360; 99283-25; J7030

== ENCOUNTER 2018-11-15 14:17 | Emergency (ER) | payer OTHER ==
[~2018-11-15] VITALS: Ht 182.9 cm; Wt 81.7 kg
[2018-11-15 15:10] LABS: BASOPHILS ABSOLUTE AUTO 0.12 K/mm3 (0.00-0.23); BASOPHILS PERCENT AUTO 2 % (0-2); EOSINOPHILS ABSOLUTE AUTO 0.21 K/mm3 (0.00-0.68); EOSINOPHILS PERCENT AUTO 3 % (0-6); Hematocrit 47.1 % (37.0-53.0); Hemoglobin 16.3 g/dL (13.5-17.5); IMMATURE GRAN ABSOLUTE AUTO 0.03 K/mm3 (0.00-0.10); IMMATURE GRAN PERCENT AUTO 1 % (0-1); LYMPHOCYTES ABSOLUTE AUTO 1.48 K/mm3 (0.84-5.20); LYMPHOCYTES PERCENT AUTO 22 % (21-46); MONOCYTES ABSOLUTE AUTO 1.74 K/mm3 (0.16-1.47); MONOCYTES PERCENT AUTO 26 % (4-13); Mean Corpuscular HGB 31.9 pg (26.0-34.0); Mean Corpuscular HGB Conc 34.6 g/dL (31.5-36.5); Mean Corpuscular Volume 92 fL (80-100); Mean Platelet Volume 10.9 fL (9.1-12.4); NEUTROPHILS ABSOLUTE AUTO 3.07 K/mm3 (1.96-9.15); NEUTROPHILS PERCENT AUTO 46 % (41-73); Platelet Count 149 K/mm3 (150-400); RDW Coefficient Variation 13.7 % (11.7-14.2); RDW Standard Deviation 46.5 fL (35.1-46.3); Red Blood Cell Count 5.11 M/mm3 (4.30-5.90); White Blood Cell Count 6.65 K/mm3 (4.00-11.30)
[2018-11-15 15:24] LABS: Alanine Aminotransfer (ALT/SGP 60 U/L (12-78); Albumin, Blood 2.7 g/dL (3.4-5.0); Albumin/Globulin Ratio 0.6 (0.8-1.8); Alk Phos 223 U/L (50-136); Anion Gap 7 mmol/L (6-16); Aspartate Aminotrans (AST/SGOT 92 U/L (12-37); Bilirubin, Total 1.1 mg/dL (0.1-1.0); Blood Urea Nitrogen 6 mg/dL (8-24); CO2, Blood 27 mmol/L (21-32); Calcium, Blood 7.7 mg/dL (8.5-10.1); Chloride, Blood 108 mmol/L (98-108); Creatinine, Blood 0.75 mg/dL (0.60-1.20); Globulin, Blood 4.5 g/dL (2.2-4.0); Glomerular Filtration Rate >60 (60-); Glucose, Blood 84 mg/dL (70-99); Potassium, Blood 4.5 mmol/L (3.5-5.5); Sodium, Blood 142 mmol/L (136-145); Total Protein, Blood 7.2 g/dL (6.4-8.2)
== END 2018-11-15 16:51 | disposition home or self-care (01) ==
LOC: ER 14:17
PROVIDERS: Internal Medicine
DX: F10.10 Alcohol abuse, uncomplicated (principal); Y90.6 Blood alcohol level of 120-199 mg/100 ml; Z88.0 Allergy status to penicillin; Z79.899 Other long term (current) drug therapy; Z79.82 Long term (current) use of aspirin; I10 Essential (primary) hypertension; F17.200 Nicotine dependence, unspecified, uncomplicated; I48.91 Unspecified atrial fibrillation
CPT/HCPCS: 36415; 80053; 85025; 93005; 93010; 96360; 96372-59; 99284-25; G0480; J3411; J7120

== ENCOUNTER 2018-12-01 17:15 | Observation (INO) | payer OTHER ==
[~2018-12-01] VITALS: Ht 182.9 cm; Wt 113.4 kg
[2018-12-01 18:16] LABS: BASOPHILS PERCENT AUTO 1 % (0-2); EOSINOPHILS ABSOLUTE AUTO 0.14 K/mm3 (0.00-0.68); EOSINOPHILS PERCENT AUTO 2 % (0-6); Hematocrit 48.3 % (37.0-53.0); Hemoglobin 16.6 g/dL (13.5-17.5); IMMATURE GRAN ABSOLUTE AUTO 0.04 K/mm3 (0.00-0.10); IMMATURE GRAN PERCENT AUTO 1 % (0-1); LYMPHOCYTES ABSOLUTE AUTO 2.79 K/mm3 (0.84-5.20); LYMPHOCYTES PERCENT AUTO 38 % (21-46); MONOCYTES ABSOLUTE AUTO 1.19 K/mm3 (0.16-1.47); MONOCYTES PERCENT AUTO 16 % (4-13); Mean Corpuscular HGB 31.8 pg (26.0-34.0); Mean Corpuscular HGB Conc 34.4 g/dL (31.5-36.5); Mean Corpuscular Volume 93 fL (80-100); Mean Platelet Volume 10.3 fL (9.1-12.4); NEUTROPHILS ABSOLUTE AUTO 3.03 K/mm3 (1.96-9.15); NEUTROPHILS PERCENT AUTO 42 % (41-73); Platelet Count 191 K/mm3 (150-400); RDW Coefficient Variation 13.8 % (11.7-14.2); RDW Standard Deviation 47.3 fL (35.1-46.3); Red Blood Cell Count 5.22 M/mm3 (4.30-5.90); White Blood Cell Count 7.29 K/mm3 (4.00-11.30)
[2018-12-01 18:27] LABS: Alanine Aminotransfer (ALT/SGP 43 U/L (12-78); Albumin, Blood 2.8 g/dL (3.4-5.0); Albumin/Globulin Ratio 0.6 (0.8-1.8); Alk Phos 163 U/L (50-136); Anion Gap 3 mmol/L (6-16); Aspartate Aminotrans (AST/SGOT 73 U/L (12-37); Bilirubin, Total 0.7 mg/dL (0.1-1.0); Blood Urea Nitrogen 4 mg/dL (8-24); Bun/Creatinine Ratio 5.3 (12.0-20.0); CO2, Blood 30 mmol/L (21-32); Calcium, Blood 7.8 mg/dL (8.5-10.1); Chloride, Blood 112 mmol/L (98-108); Creatinine, Blood 0.76 mg/dL (0.60-1.20); Globulin, Blood 4.5 g/dL (2.2-4.0); Glomerular Filtration Rate >60 (60-); Glucose, Blood 90 mg/dL (70-99); International Normalized Ratio 1.17; Potassium, Blood 3.7 mmol/L (3.5-5.5); Prothrombin Time Results 12.2 Sec (9.7-11.5); Sodium, Blood 145 mmol/L (136-145); Total Protein, Blood 7.3 g/dL (6.4-8.2)
[2018-12-01 18:34] LABS: Ethanol (Alcohol), Blood, Med 304 mg/dL
[2018-12-01] MEDS ORDERED: B-1100 MG PO (20:00)
[2018-12-01] MEDS ORDERED: ACAMPROSATE CA333 MG PO (20:01)
[2018-12-01] MEDS ORDERED: LACT10SY PO (20:02)
[2018-12-01] MEDS ORDERED: PANT40 PO (20:02)
[2018-12-01] MEDS ORDERED: PROP10 PO (20:02)
[2018-12-01] MEDS ORDERED: MIRT30 PO (20:02)
[2018-12-01] MEDS ORDERED: Micro-K10 MEQ PO (20:03)
[2018-12-01] MEDS ORDERED: Aspir-Low81 MG PO (20:04)
[2018-12-01] MEDS ORDERED: THERA M PLUS T1 EACH PO (20:07)
== END 2018-12-01 21:16 | disposition home or self-care (01) ==
LOC: ER 17:15 → EOR 17:16
PROVIDERS: ADMIT Emergency Medicine
DX: F10.129 Alcohol abuse with intoxication, unspecified (principal); I10 Essential (primary) hypertension; Z88.0 Allergy status to penicillin; Y90.8 Blood alcohol level of 240 mg/100 ml or more
CPT/HCPCS: 80053; 82140; 85025; 85610; 99285; G0378; G0480; J7120

== ENCOUNTER 2018-12-03 14:20 | Emergency (ER) | payer OTHER ==
[~2018-12-03] VITALS: Ht 182.9 cm; Wt 99.8 kg
[~2018-12-03 14:20] MED LIST changes: +ACAMPROSATE CA333 MG PO; +B-1100 MG PO; +MIRT30 PO; +Micro-K10 MEQ PO; +PROP10 PO; +THERA M PLUS T1 EACH PO
[2018-12-03 15:26] LABS: BASOPHILS PERCENT AUTO 2 % (0-2); EOSINOPHILS ABSOLUTE AUTO 0.25 K/mm3 (0.00-0.68); EOSINOPHILS PERCENT AUTO 4 % (0-6); Hematocrit 48.9 % (37.0-53.0); Hemoglobin 16.8 g/dL (13.5-17.5); IMMATURE GRAN ABSOLUTE AUTO 0.03 K/mm3 (0.00-0.10); IMMATURE GRAN PERCENT AUTO 1 % (0-1); LYMPHOCYTES ABSOLUTE AUTO 2.18 K/mm3 (0.84-5.20); LYMPHOCYTES PERCENT AUTO 34 % (21-46); MONOCYTES ABSOLUTE AUTO 0.88 K/mm3 (0.16-1.47); MONOCYTES PERCENT AUTO 14 % (4-13); Mean Corpuscular HGB 32.3 pg (26.0-34.0); Mean Corpuscular HGB Conc 34.4 g/dL (31.5-36.5); Mean Corpuscular Volume 94 fL (80-100); Mean Platelet Volume 10.8 fL (9.1-12.4); NEUTROPHILS ABSOLUTE AUTO 2.98 K/mm3 (1.96-9.15); NEUTROPHILS PERCENT AUTO 46 % (41-73); Platelet Count 170 K/mm3 (150-400); RDW Coefficient Variation 13.6 % (11.7-14.2); RDW Standard Deviation 47.6 fL (35.1-46.3); White Blood Cell Count 6.42 K/mm3 (4.00-11.30)
[2018-12-03 16:17] LABS: Alanine Aminotransfer (ALT/SGP 41 U/L (12-78); Albumin, Blood 2.8 g/dL (3.4-5.0); Albumin/Globulin Ratio 0.7 (0.8-1.8); Alk Phos 166 U/L (50-136); Anion Gap 9 mmol/L (6-16); Aspartate Aminotrans (AST/SGOT 73 U/L (12-37); Bilirubin, Total 0.9 mg/dL (0.1-1.0); Blood Urea Nitrogen 5 mg/dL (8-24); CO2, Blood 26 mmol/L (21-32); Calcium, Blood 7.8 mg/dL (8.5-10.1); Chloride, Blood 110 mmol/L (98-108); Creatinine, Blood 0.71 mg/dL (0.60-1.20); Globulin, Blood 4.3 g/dL (2.2-4.0); Glomerular Filtration Rate >60 (60-); Glucose, Blood 89 mg/dL (70-99); Potassium, Blood 4.4 mmol/L (3.5-5.5); Sodium, Blood 145 mmol/L (136-145); Total Protein, Blood 7.1 g/dL (6.4-8.2)
== END 2018-12-03 17:45 | disposition home or self-care (01) ==
LOC: ER 14:20
PROVIDERS: Emergency Medicine
DX: K70.30 Alcoholic cirrhosis of liver without ascites (principal); F10.229 Alcohol dependence with intoxication, unspecified; Z88.0 Allergy status to penicillin; Z79.899 Other long term (current) drug therapy; Z79.82 Long term (current) use of aspirin; I48.91 Unspecified atrial fibrillation; I10 Essential (primary) hypertension; F17.210 Nicotine dependence, cigarettes, uncomplicated
CPT/HCPCS: 36415; 80053; 82140; 83690; 85025; 99284

== ENCOUNTER 2018-12-29 09:25 | Emergency (ER) | payer OTHER ==
[~2018-12-29] VITALS: Ht 182.9 cm; Wt 102.5 kg
[2018-12-29 10:20] LABS: BASOPHILS ABSOLUTE AUTO 0.08 K/mm3 (0.00-0.23); BASOPHILS PERCENT AUTO 1 % (0-2); EOSINOPHILS ABSOLUTE AUTO 0.36 K/mm3 (0.00-0.68); EOSINOPHILS PERCENT AUTO 4 % (0-6); Hematocrit 45.5 % (37.0-53.0); Hemoglobin 15.7 g/dL (13.5-17.5); IMMATURE GRAN ABSOLUTE AUTO 0.05 K/mm3 (0.00-0.10); IMMATURE GRAN PERCENT AUTO 1 % (0-1); LYMPHOCYTES PERCENT AUTO 34 % (21-46); MONOCYTES ABSOLUTE AUTO 1.37 K/mm3 (0.16-1.47); MONOCYTES PERCENT AUTO 15 % (4-13); Mean Corpuscular HGB 31.5 pg (26.0-34.0); Mean Corpuscular HGB Conc 34.5 g/dL (31.5-36.5); Mean Corpuscular Volume 91 fL (80-100); Mean Platelet Volume 12.2 fL (9.1-12.4); NEUTROPHILS ABSOLUTE AUTO 4.19 K/mm3 (1.96-9.15); NEUTROPHILS PERCENT AUTO 46 % (41-73); Platelet Count 139 K/mm3 (150-400); RDW Coefficient Variation 14.2 % (11.7-14.2); RDW Standard Deviation 47.2 fL (35.1-46.3); Red Blood Cell Count 4.98 M/mm3 (4.30-5.90); White Blood Cell Count 9.15 K/mm3 (4.00-11.30)
[2018-12-29 10:39] LABS: Alanine Aminotransfer (ALT/SGP 24 U/L (12-78); Albumin, Blood 3.1 g/dL (3.4-5.0); Albumin/Globulin Ratio 0.8 (0.8-1.8); Alk Phos 137 U/L (50-136); Anion Gap 10 mmol/L (6-16); Aspartate Aminotrans (AST/SGOT 35 U/L (12-37); Bilirubin, Total 1.4 mg/dL (0.1-1.0); Blood Urea Nitrogen 7 mg/dL (8-24); CO2, Blood 21 mmol/L (21-32); Calcium, Blood 8.6 mg/dL (8.5-10.1); Chloride, Blood 115 mmol/L (98-108); Creatinine, Blood 0.78 mg/dL (0.60-1.20); Globulin, Blood 4.1 g/dL (2.2-4.0); Glomerular Filtration Rate >60 (60-); Glucose, Blood 127 mg/dL (70-99); Potassium, Blood 3.3 mmol/L (3.5-5.5); Sodium, Blood 146 mmol/L (136-145); Total Protein, Blood 7.2 g/dL (6.4-8.2)
[2018-12-29] MEDS ORDERED: Vibramycin100 MG PO (12:05)
== END 2018-12-29 14:10 | disposition home or self-care (01) ==
LOC: ER 09:25
PROVIDERS: Emergency Medicine
DX: L03.116 Cellulitis of left lower limb (principal); I48.91 Unspecified atrial fibrillation; I10 Essential (primary) hypertension; K70.30 Alcoholic cirrhosis of liver without ascites; F17.210 Nicotine dependence, cigarettes, uncomplicated; Z88.0 Allergy status to penicillin; Z79.899 Other long term (current) drug therapy; Z79.82 Long term (current) use of aspirin
CPT/HCPCS: 36415; 80053; 82140; 85025; 96365; 99283-25

== ENCOUNTER 2019-01-07 07:46 | Emergency (ER) | payer OTHER ==
[~2019-01-07] VITALS: Ht 182.9 cm; Wt 100.7 kg
[~2019-01-07 07:46] MED LIST changes: +Vibramycin100 MG PO
[2019-01-07] MEDS ORDERED: POTA10T (08:04)
== END 2019-01-07 08:30 | disposition home or self-care (01) ==
LOC: ER 07:46
DX: F10.129 Alcohol abuse with intoxication, unspecified (principal); I10 Essential (primary) hypertension; I48.91 Unspecified atrial fibrillation; F17.210 Nicotine dependence, cigarettes, uncomplicated; Z88.0 Allergy status to penicillin; Z79.899 Other long term (current) drug therapy
CPT/HCPCS: 99284

== ENCOUNTER 2019-03-11 19:07 | Emergency (ER) | payer OTHER ==
[~2019-03-11] VITALS: Ht 182.9 cm; Wt 99.8 kg
[~2019-03-11 19:07] MED LIST changes: +POTA10T
[2019-03-11 20:02] LABS: BASOPHILS ABSOLUTE AUTO 0.08 K/mm3 (0.00-0.23); BASOPHILS PERCENT AUTO 1 % (0-2); EOSINOPHILS ABSOLUTE AUTO 0.03 K/mm3 (0.00-0.68); EOSINOPHILS PERCENT AUTO 0 % (0-6); Hematocrit 46.3 % (37.0-53.0); Hemoglobin 15.9 g/dL (13.5-17.5); IMMATURE GRAN ABSOLUTE AUTO 0.02 K/mm3 (0.00-0.10); IMMATURE GRAN PERCENT AUTO 0 % (0-1); LYMPHOCYTES ABSOLUTE AUTO 2.59 K/mm3 (0.84-5.20); LYMPHOCYTES PERCENT AUTO 30 % (21-46); MONOCYTES ABSOLUTE AUTO 1.27 K/mm3 (0.16-1.47); MONOCYTES PERCENT AUTO 15 % (4-13); Mean Corpuscular HGB 31.2 pg (26.0-34.0); Mean Corpuscular HGB Conc 34.3 g/dL (31.5-36.5); Mean Corpuscular Volume 91 fL (80-100); Mean Platelet Volume 12.4 fL (9.1-12.4); NEUTROPHILS ABSOLUTE AUTO 4.67 K/mm3 (1.96-9.15); NEUTROPHILS PERCENT AUTO 54 % (41-73); Platelet Count 124 K/mm3 (150-400); RDW Coefficient Variation 14.9 % (11.7-14.2); Red Blood Cell Count 5.09 M/mm3 (4.30-5.90); White Blood Cell Count 8.66 K/mm3 (4.00-11.30)
[2019-03-11 20:18] LABS: Alanine Aminotransfer (ALT/SGP 45 U/L (12-78); Albumin, Blood 3.3 g/dL (3.4-5.0); Albumin/Globulin Ratio 0.8 (0.8-1.8); Alk Phos 121 U/L (50-136); Anion Gap 8 mmol/L (6-16); Aspartate Aminotrans (AST/SGOT 101 U/L (12-37); Bilirubin, Total 1.3 mg/dL (0.1-1.0); Blood Urea Nitrogen 6 mg/dL (8-24); Bun/Creatinine Ratio 7.5 (12.0-20.0); CO2, Blood 28 mmol/L (21-32); Calcium, Blood 7.9 mg/dL (8.5-10.1); Chloride, Blood 104 mmol/L (98-108); Globulin, Blood 4.1 g/dL (2.2-4.0); Glomerular Filtration Rate >60 (60-); Glucose, Blood 104 mg/dL (70-99); Potassium, Blood 4.1 mmol/L (3.5-5.5); Sodium, Blood 140 mmol/L (136-145); Total Protein, Blood 7.4 g/dL (6.4-8.2)
[2019-03-11 20:25] LABS: Ethanol (Alcohol), Blood, Med 384 mg/dL
== END 2019-03-11 22:25 | disposition home or self-care (01) ==
LOC: ER 19:07
PROVIDERS: Emergency Medicine
DX: F10.229 Alcohol dependence with intoxication, unspecified (principal); I10 Essential (primary) hypertension; Z79.899 Other long term (current) drug therapy; Y90.8 Blood alcohol level of 240 mg/100 ml or more
CPT/HCPCS: 36415; 80053; 82140; 85025; 96360; 99283-25; G0480; J7030

== ENCOUNTER 2019-03-12 19:05 | Emergency (ER) | payer OTHER ==
[~2019-03-12] VITALS: Ht 182.9 cm; Wt 99.8 kg
== END 2019-03-13 03:45 | disposition home or self-care (01) ==
LOC: ER 19:05
DX: F10.129 Alcohol abuse with intoxication, unspecified (principal); Y90.8 Blood alcohol level of 240 mg/100 ml or more; I10 Essential (primary) hypertension; Z88.0 Allergy status to penicillin; Z79.899 Other long term (current) drug therapy
CPT/HCPCS: 36415; 99284; G0480

== ENCOUNTER 2019-04-19 17:35 | Inpatient (IN) | payer OTHER ==
[~2019-04-19] VITALS: Ht 182.9 cm; Wt 94.3 kg
[~2019-04-19 17:35] MED LIST changes: -ACAMPROSATE CA333 MG PO; -Micro-K10 MEQ PO; -PROP10 PO; -THERA M PLUS T1 EACH PO
[2019-04-19 18:11] LABS: BASOPHILS ABSOLUTE AUTO 0.04 K/mm3 (0.00-0.23); BASOPHILS PERCENT AUTO 1 % (0-2); EOSINOPHILS ABSOLUTE AUTO 0.06 K/mm3 (0.00-0.68); EOSINOPHILS PERCENT AUTO 1 % (0-6); Hematocrit 44.5 % (37.0-53.0); Hemoglobin 15.3 g/dL (13.5-17.5); IMMATURE GRAN ABSOLUTE AUTO 0.02 K/mm3 (0.00-0.10); IMMATURE GRAN PERCENT AUTO 0 % (0-1); LYMPHOCYTES ABSOLUTE AUTO 2.37 K/mm3 (0.84-5.20); LYMPHOCYTES PERCENT AUTO 29 % (21-46); MONOCYTES ABSOLUTE AUTO 0.84 K/mm3 (0.16-1.47); MONOCYTES PERCENT AUTO 10 % (4-13); Mean Corpuscular HGB 30.8 pg (26.0-34.0); Mean Corpuscular HGB Conc 34.4 g/dL (31.5-36.5); Mean Corpuscular Volume 90 fL (80-100); NEUTROPHILS ABSOLUTE AUTO 4.84 K/mm3 (1.96-9.15); NEUTROPHILS PERCENT AUTO 59 % (41-73); Platelet Count 70 K/mm3 (150-400); RDW Coefficient Variation 15.5 % (11.7-14.2); RDW Standard Deviation 50.6 fL (35.1-46.3); Red Blood Cell Count 4.97 M/mm3 (4.30-5.90); White Blood Cell Count 8.17 K/mm3 (4.00-11.30)
[2019-04-19 18:36] LABS: Mean Platelet Volume 13.2 fL (9.1-12.4)
[2019-04-19 18:44] LABS: Alanine Aminotransfer (ALT/SGP 39 U/L (12-78); Albumin, Blood 3.2 g/dL (3.4-5.0); Albumin/Globulin Ratio 0.8 (0.8-1.8); Alk Phos 128 U/L (50-136); Anion Gap 12 mmol/L (6-16); Aspartate Aminotrans (AST/SGOT 86 U/L (12-37); Bilirubin, Total 2.5 mg/dL (0.1-1.0); Blood Urea Nitrogen 7 mg/dL (8-24); Bun/Creatinine Ratio 8.5 (12.0-20.0); CO2, Blood 21 mmol/L (21-32); Calcium, Blood 7.8 mg/dL (8.5-10.1); Chloride, Blood 102 mmol/L (98-108); Creatinine, Blood 0.82 mg/dL (0.60-1.20); Globulin, Blood 4.1 g/dL (2.2-4.0); Glomerular Filtration Rate >60 (60-); Glucose, Blood 78 mg/dL (70-99); Sodium, Blood 135 mmol/L (136-145); Total Protein, Blood 7.3 g/dL (6.4-8.2); Troponin I <0.015 ng/mL (0.000-0.040)
[2019-04-19] MEDS ORDERED: Micro-K10 MEQ PO (20:59)
[2019-04-19] MEDS ORDERED: ASPIR 8181 MG PO (20:59)
[2019-04-19] MEDS ORDERED: PANT40 PO (21:00)
[2019-04-19] MEDS ORDERED: LACT10SY PO (21:00)
[2019-04-19] MEDS ORDERED: TRAZ100 PO (21:02)
[2019-04-19] MEDS ORDERED: Thera-M1 EACH PO (21:03)
[2019-04-19] MEDS ORDERED: PROP10 PO (22:23)
[2019-04-19] MEDS ORDERED: ACAMPROSATE CA333 MG PO (22:23)
--- NOTE | 2019-04-19 22:45 | NUR ---
PT ARRIVED TO ICU 11 FROM ER. ACCOMPANIED BY COMPOSITION MIXER. PT IS A/O X4. DENIES NAUSEA NOW. PT ABLE TO FOLLOW COMMANDS. TREMORS IN HANDS. WILL GIVE LIBRIUM PER CIWA. BANANA BAG RUNNING. SEE ASSESSMENT. NO SIGN OF DISTRESS.
[2019-04-20 02:27] LABS: Hemoglobin 14.2 g/dL (13.5-17.5); Mean Corpuscular HGB 30.7 pg (26.0-34.0); Mean Corpuscular HGB Conc 34.6 g/dL (31.5-36.5); Mean Corpuscular Volume 89 fL (80-100); Platelet Count 61 K/mm3 (150-400); RDW Coefficient Variation 15.5 % (11.7-14.2); RDW Standard Deviation 50.7 fL (35.1-46.3); Red Blood Cell Count 4.63 M/mm3 (4.30-5.90); White Blood Cell Count 8.68 K/mm3 (4.00-11.30)
[2019-04-20 02:41] LABS: Anion Gap 10 mmol/L (6-16); Blood Urea Nitrogen 8 mg/dL (8-24); CO2, Blood 24 mmol/L (21-32); Calcium, Blood 7.4 mg/dL (8.5-10.1); Chloride, Blood 104 mmol/L (98-108); Creatinine, Blood 0.73 mg/dL (0.60-1.20); Glomerular Filtration Rate >60 (60-); Glucose, Blood 118 mg/dL (70-99); Potassium, Blood 3.7 mmol/L (3.5-5.5); Sodium, Blood 138 mmol/L (136-145)
--- NOTE | 2019-04-20 06:01 | NUR ---
SUMMARY PT WAS ADMIT FROM ER LAST NOC FOR ETOH WD. PT IS A/O X4. DENIES NAUSEA NOW. CIWA HAS BEEN 8-9. RECEIVED BANANA BAG AND IS NOW ON NS AT 75ML/HR. PT ABLE TO USE URINAL INDEP. NO SIGN OF DISTRESS.
--- NOTE | 2019-04-20 08:19 | NUR ---
PT AWAKE SITTING UP IN BED, STATES HE FEELS "SO MUCH BETTER THAN YESTERDAY". PT STATES HE IS "STARVING". REG TRAY ORDERED. DR STYLES AT BEDSIDE; PT NOW MED FLOOR STATUS NO TELE. CNVI 2.
--- NOTE | 2019-04-20 15:16 | NUR ---
SUMMARY ICU TRANSFER TODAY. PT IS A/O X3, PLEASANT AFFECT. 1 ASSIST TO TRANSFER FROM W/C TO BED, GAIT UNSTEADY. PT STATE RLE NEUROPATHY IMPAIRS GAIT. STATE WEAKNESS/FATIGUE. STATE NAUSEA RESOLVED @ THIS TIME. DX ETOH W/D. HE IS CALM, NO VISIBLE HAND TREMOR NOTED. CIWA 0 @ THIS TIME. VSS. NS INFUSING @ 75 ML/HR. AMMONIA LEVEL ELEVATED HOWEVER IMPROVING @ 80 THIS AM. ALBACORE FISHING BOAT CREWMAN PROVIDE COMPLETE BEDBATH THIS AM, BARRIER OINT APPLIED TO SARIKA/COCCYX REDNESS, EXCORIATIONS.
--- NOTE | 2019-04-20 20:55 | NUR ---
ALERTED TO [facility] 419 W/NEW ORDERS RECIEVED FOR 8 UNITS HUMALOG NOW AND RECHECK CBG AT WI.
--- NOTE | 2019-04-21 04:30 | NUR ---
SUMMARY: PT A/OX3, SPECIFIES NEEDS AND REPOSITIONS SELF IN BED. 1P ASSIST TO BSC T/O NOCTE FOR VOIDS AND X1 MED LIQ BM. LACTULOSE HELD D/T MULTI LIQ BM'S ON DAY SHIFT. BUTTOCKS NOTED TO BE EXCORIATED W/BARRIER CREAM APPLIED. 1.5L NS INFUSION WAS COMPLETED AND BANANA BAG RECIEVED THEN SL. CIWA'S 0. PT HAD MANY SNACKS THIS SHIFT PER REQUEST. HE DENIED PAIN, NAUSEA AND ALL OTHER COMPLAINTS. NO ACUTE CHANGES, VSS/AFEBRILE. WCTM AND REPORT TO DAY RN.
--- NOTE | 2019-04-21 12:29 | NUR ---
DISCHARGE CANCELLED AFTER PJHYTHER EVAL, STATE NEED FOR MORE THERAPY BEFORE D/C HOME, DR STYLES AGREE. PT INFORMED.
--- NOTE | 2019-04-21 18:23 | NUR ---
SUMMARY DR STYLES IN TO SEE PT THIS AM, STATE PT READY FOR D/C HOME TODAY IF TYLER ENRIQUEZ RECOMMENDS. PLACE ORDERS HOWEVER TYLER STATE PT TO WEAK, UNSTEADY @ THIS TIME FOR SUCCESS @ HOME, DR STYLES CANCEL D/C. IV HAD BEEN D/C'D, DR QUIROGA DO NOT RESTART, OK NO IV, CHANGE ALL MEDS TO ORAL. PT STATE KNOWLEDGE OF NEED FOR FURTHER STRENGTHENING & POSSIBLE NEED FOR SNF/REHAB. HE IS A/O X4, HEAVY 2 ASSIST TO CHAIR, UNABLE TO BR WT. HE HAS HAD 1 BM TODAY, LACTULOSE GIVEN X2. VSS.
--- NOTE | 2019-04-22 05:02 | NUR ---
SHIFT SUMMARY NO CHANGES, PT HAS RESTED IN BED MOST OF THE SHIFT. HE IS EAGERLY ANTICIPATING DC. PT HAD QUESTIONS THIS AM IF HE WOULD LOSE HIS INSURANCE COVERAGE IF HE LEFT AMA, AND WOULD LIKE TO SPEAK WITH A DC REGISTERED NURSE SURGICAL SERVICES. PT STILL FEELS HE ISNT STRONG ENOUGH, AND HAS FEARS HE WILL NOT BE ABLE TO DISCHARGE TODAY. HE STATES THAT HIS HOME IS WC ACCESSIBLE AND FEELS HE WILL BE FINE ON HIS OWN. I EXPLAINED THAT A SAFE DISCHARGE IS WHATS IMPORTANT AND HE NEEDS TO BE BACK AT HIS BASELINE MOBILITY BEFORE DISCHARGE, HE EXPRESSED UNDERSTANDING. VITALS HAVE BEEN STABLE. THERE HAVE BEEN NO ACUTE CHANGES. BED IN LOWEST POSITION, CALL LIGHT WITHIN REACH. WILL CONTINUE TO MONITOR AND REPORT TO ONCOMING RN.
--- NOTE | 2019-04-22 08:23 | NUR ---
therapy in to see pt.
--- NOTE | 2019-04-22 14:23 | NUR ---
DC PT REFUSING SNF. REVIEWED DC PAPERWORK, PT VERBALIZED UNDERSTANDING. SIGNED DC PAPERWORK. AWAITING RIDE. SITTING UP IN CHAIR.
--- NOTE | 2019-04-22 14:33 | NUR ---
PT LEFT UNIT IN WC W/POSSESSIONS AND DC PAPERWORK IN HAND.
== END 2019-04-22 14:32 | disposition home or self-care (01) | DRG 896 ==
LOC: ER 17:35 → ICUW 22:00 → MEDS 04-20 10:18 → ENPENDDIS 04-21 09:47 → MEDS 04-22 14:32
PROVIDERS: Nurse Practitioner Acute Care; Physician Assistant; ADMIT Internal Medicine
DX: F10.239 Alcohol dependence with withdrawal, unspecified (principal); G92 Toxic encephalopathy; E87.0 Hyperosmolality and hypernatremia; K70.30 Alcoholic cirrhosis of liver without ascites; F17.210 Nicotine dependence, cigarettes, uncomplicated; I48.91 Unspecified atrial fibrillation; D69.6 Thrombocytopenia, unspecified; F10.27 Alcohol dependence with alcohol-induced persisting dementia; Z91.14 Patient's other noncompliance with medication regimen; Z79.82 Long term (current) use of aspirin; Y90.6 Blood alcohol level of 120-199 mg/100 ml
CPT/HCPCS: 36415; 74022; 80048; 80053; 82140; 83690; 83735; 84484; 85025; 85027; 93005; 93010; 96361; 96365; 96375; 96376; 97116; 97161; 97530; 99285-25; C9113; G0480; J2060; J2405; J3411; J3475; J7030; J7042

== ENCOUNTER 2019-05-11 21:09 | Observation (INO) | payer OTHER ==
[~2019-05-11] VITALS: Ht 182.9 cm; Wt 90.7 kg
[~2019-05-11 21:09] MED LIST changes: +ACAMPROSATE CA333 MG PO; +ASPIR 8181 MG PO; +Micro-K10 MEQ PO; +PROP10 PO; +TRAZ100 PO; +Thera-M1 EACH PO
== END 2019-05-12 06:18 | disposition home or self-care (01) ==
LOC: ER 21:09 → EOR 21:10
PROVIDERS: ADMIT Emergency Medicine
DX: F10.229 Alcohol dependence with intoxication, unspecified (principal); G62.9 Polyneuropathy, unspecified; I10 Essential (primary) hypertension; Z79.82 Long term (current) use of aspirin; Z79.899 Other long term (current) drug therapy; Y90.8 Blood alcohol level of 240 mg/100 ml or more
CPT/HCPCS: 36415; 99285; G0378; G0480

== ENCOUNTER 2019-05-12 12:43 | Emergency (ER) | payer OTHER ==
[~2019-05-12] VITALS: Ht 182.9 cm; Wt 90.7 kg
== END 2019-05-12 14:19 | disposition home or self-care (01) ==
LOC: ER 12:43
DX: F10.229 Alcohol dependence with intoxication, unspecified (principal); I10 Essential (primary) hypertension; Z87.81 Personal history of (healed) traumatic fracture
CPT/HCPCS: 99283